=== PATIENT | female | born 1970 | race Caucasian/White ===

== ENCOUNTER 2017-09-26 17:14 | Emergency (ER) | payer BC, OTHER ==
[~2017-09-26] VITALS: Ht 162.6 cm; Wt 66.0 kg
[~2017-09-26 17:14] MED LIST: CELE40TA PO; FAMO1TAB37 PO; METR-1 PO; REGL5TAB PO
[2017-09-26] MEDS ORDERED: IOHEXOL 350 MG/ML 10 ML VIAL (for RAD DIAG) IVCONTRAST ONE (17:15)
[2017-09-26 17:30] VITALS: BP 182/100; PULSE 71; RESP 16; TEMP 98.3; O2SAT 98
[2017-09-26] MEDS ORDERED: ZOFR4TAB3 SL (17:36)
[2017-09-26 17:49] LABS: AUTOMATED NEUTROPHIL # 8.6 TH/MM3 (1.8-7.7); BASOPHIL # 0.2 TH/MM3 (0-0.2); BASOPHIL % 1.6 % (0.0-2.0); EOSINOPHIL % 0.1 % (0.0-4.0); HEMATOCRIT 47.4 % (35.0-46.0); HEMOGLOBIN 16.4 GM/DL (11.6-15.3); LYMPH % 15.9 % (9.0-44.0); LYMPHOCYTE # 1.7 TH/MM3 (1.0-4.8); MEAN CELL VOLUME 92.6 FL (80.0-100.0); MEAN CORPUSCULAR HGB CONC 34.5 % (32.0-36.0); MEAN PLATELET VOLUME 10.5 FL (7.0-11.0); MONO % 1.6 % (0.0-8.0); MONOCYTE # 0.2 TH/MM3 (0-0.9); NEUT % 80.8 % (16.0-70.0); PLATELET COUNT 167 TH/MM3 (150-450); RED BLOOD COUNT 5.11 MIL/MM3 (4.00-5.30); RED CELL DISTRIBUTION WIDTH 13.7 % (11.6-17.2); WHITE BLOOD COUNT 10.7 TH/MM3 (4.0-11.0)
[2017-09-26 17:53] LABS: CHLORIDE 104 MEQ/L (98-107); SODIUM (NA) 137 MEQ/L (136-145)
[2017-09-26 17:56] LABS: CALCIUM 9.2 MG/DL (8.5-10.1)
[2017-09-26 17:57] LABS: ALBUMIN 4.4 GM/DL (3.4-5.0); BICARBONATE 21.6 MEQ/L (21.0-32.0); BLOOD UREA NITROGEN 9 MG/DL (7-18); GLUCOSE,RANDOM 140 MG/DL (74-106)
[2017-09-26 18:00] LABS: ALT (GPT) 13 U/L (10-53); AST (GOT) 11 U/L (15-37); GLOMERULAR FILTRATION RATE 76 ML/MIN (>89)
[2017-09-26] MEDS ORDERED: KETOROLAC TROMETHAMINE 30 MG/ML (IVP) VIAL IV PUSH ONE (18:00)
[2017-09-26 18:01] LABS: TOTAL BILIRUBIN ADULT 0.5 MG/DL (0.2-1.0); TOTAL PROTEIN 8.4 GM/DL (6.4-8.2)
[2017-09-26 18:02] LABS: PROTHROMBIN TIME - PATIENT 10.6 SEC (9.8-11.6)
[2017-09-26 18:03] LABS: ALKALINE PHOSPHATASE 80 U/L (45-117); D-DIMER 0.61 MG/L FEU (0.00-0.50)
[2017-09-26 18:05] LABS: TROPONIN I LESS THAN 0.02 NG/ML (0.02-0.05)
--- NOTE | 2017-09-26 18:22 | RADRPT ---
EXAM DATE/TIME: 09/26/2017 18:03 [facility] COMPARISON: CHEST SINGLE AP, December 14, 2012, 10:53. INDICATIONS : Substernal chest pain radiating down left arm. MEDICAL HISTORY : None. SURGICAL HISTORY : None. ENCOUNTER: Initial ACUITY: 1 day PAIN SCORE: 5/10 LOCATION: chest substernal FINDINGS: No infiltrate, effusion or pneumothorax. Heart size stable, within normal limits. There are minimally displaced fractures laterally of the right fifth and sixth ribs. These are nonacu te but new since 2012. They appear substantially healed. CONCLUSION: No evidence of acute cardiopulmonary disease. Nonacute right rib fractures. Fercho Jaimes MD on September 26, 2017 at 18:18 Board Certified Radiologist. This report was verified electronically.
--- NOTE | 2017-09-26 18:51 | PD ---
HPI Chief Complaint: Chest Pain Time Seen by Provider: 17:22 Travel History International Travel<30 days: No Contact w/Intl Traveler<30days: No Traveled to known affect area: No History of Present Illness HPI This is a 47-year-old female presents to the ER complaining of chest pain for the last 2 hours prior to arrival in the ER. Pain is 9 out of 10 constant, located substernally, no radiation, started 2 hours ago and still there, sharp, nothing makes it better or worse. Patient is going through family stress and reports being distressed. She denies any cough or shortness of breath no fever or chills or night sweats, no abdominal pain or nausea or vomiting. PFSH Past Medical History Hx Anticoagulant Therapy: No Arthritis: No Asthma: No Autoimmune Disease: No Blood Disorders: No Anxiety: Yes Depression: Yes Heart Rhythm Problems: No Cancer: No Cardiac Catheterization: Yes (2012) Cardiovascular Problems: Yes High Cholesterol: No Chemotherapy: No Chest Pain: No Congestive Heart Failure: No COPD: No Cerebrovascular Accident: No Diabetes: No Diminished Hearing: No Endocrine: No Gastrointestinal Disorders: Yes (ULCER, PANCREATITIS, SPHINTER OF ODDI DISFUNCTION) GERD: Yes Glaucoma: No Genitourinary: No Headaches: No Hepatitis: No Hiatal Hernia: No Heparin Induced Thrombocytopen: No Hypertension: No Immune Disorder: No Kidney Stones: No Medical other: No Musculoskeletal: Yes Neurologic: No Psychiatric: Yes Respiratory: No Immunizations Current: No Migraines: No Myocardial Infarction: Yes (PER PT. AT END OF JULY 2012) Pancreatitis: Yes Radiation Therapy: No Renal Failure: No Seizures: No Sickle Cell Disease: No Sleep Apnea: No Thyroid Disease: No Ulcer: No ?: Not Menopausal: Yes Past Surgical History Abdominal Surgery: Yes (GALLBLADDER, SPHINCTERPLASTY AND MULTIPLE STENTS PLACED IN COMMON BILE DUCT) AICD: No Arteriovenous Shunt: No Body Medical Devices: TITANIUM PLATE AND SCREWS IN NECK Cardiac Surgery: Yes (CATHETERIZATION ) Cholecystectomy: Yes (1995) Ear Surgery: No Endocrine Surgery: No Eye Surgery: No Genitourinary Surgery: No Gynecologic Surgery: Yes (OVARIAN CYSTECTOMY) Insulin Pump: No Joint Replacement: No Neurologic Surgery: Yes (CERVICAL FUSION ) Oral Surgery: Yes (DENTURES, WISDOM TEETH) Pacemaker: No Thoracic Surgery: No Other Surgery: Yes (ERCP 01/20,08/24, 12/30/06,03/24 WITH STENT IN, REMOVAL OF STENT 08/2007) Social History Alcohol Use: No (denies) Tobacco Use: No Substance Use: No Allergies-Medications (Allergen,Severity, Reaction): Coded Allergies: codeine (Unverified Adverse Reaction, Severe, Nausea/Vomiting, 09/26/17) Reported Meds & Prescriptions Reported Meds & Active Scripts Active Reglan (Metoclopramide HCl) 5 Mg Tab 5 Mg PO Q6HR PRN Reported Zofran Odt (Ondansetron Odt) 4 Mg Tab 4 Mg SL Q12HR PRN Celexa (Citalopram Hydrobromide) 40 Mg Tab 40 Mg PO DAILY Review of Systems Except as stated in HPI: all other systems reviewed are Neg Physical Exam Narrative GENERAL: Alert oriented 3 no acute distress. SKIN: Focused skin assessment warm/dry. HEAD: Atraumatic. Normocephalic. EYES: Pupils equal and round. No scleral icterus. No injection or drainage. ENT: No nasal bleeding or discharge. Mucous membranes pink and moist. NECK: Trachea midline. No JVD. CARDIOVASCULAR: Regular rate and rhythm. No murmur appreciated. RESPIRATORY: No accessory muscle use. Clear to auscultation. Breath sounds equal bilaterally. GASTROINTESTINAL: Abdomen soft, non-tender, nondistended. Hepatic and splenic margins not palpable. MUSCULOSKELETAL: No obvious deformities. No clubbing. No cyanosis. No edema. NEUROLOGICAL: Awake and alert. No obvious cranial nerve deficits. Motor grossly within normal limits. Normal speech. PSYCHIATRIC: Appropriate mood and affect; insight and judgment normal. Data Data Last Documented VS Vital Signs Date Time Temp Pulse Resp B/P (MAP) Pulse Ox O2 Delivery O2 Flow Rate FiO2 09/26/17 17:30 98.3 71 16 182/100 (127) 98 09/26/17 17:28 Room Air Orders Orders Troponin I (09/26/17 17:29) Urinalysis - C+S If Indicated (09/26/17 17:29) Prothrombin Time / Inr (Pt) (09/26/17 17:29) Act Partial Throm Time (Ptt) (09/26/17 17:29) D-Dimer (09/26/17 17:29) Comprehensive Metabolic Panel (09/26/17 17:29) Complete Blood Count With Diff (09/26/17 17:29) B-Type Natriuretic Peptide (09/26/17 17:29) Chest, Single Ap (09/26/17 ) Ketorolac Inj (Toradol Inj) (09/26/17 18:00) Electrocardiogram (09/26/17 17:22) Ct Pulmonary Angiogram (09/26/17 ) Aspirin (Aspirin) (09/26/17 19:00) Labs Laboratory Tests Test 09/26/17 17:34 White Blood Count 10.7 TH/MM3 Red Blood Count 5.11 MIL/MM3 Hemoglobin 16.4 GM/DL Hematocrit 47.4 % Mean Corpuscular Volume 92.6 FL Mean Corpuscular Hemoglobin 32.0 PG Mean Corpuscular Hemoglobin Concent 34.5 % Red Cell Distribution Width 13.7 % Platelet Count 167 TH/MM3 Mean Platelet Volume 10.5 FL Neutrophils (%) (Auto) 80.8 % Lymphocytes (%) (Auto) 15.9 % Monocytes (%) (Auto) 1.6 % Eosinophils (%) (Auto) 0.1 % Basophils (%) (Auto) 1.6 % Neutrophils # (Auto) 8.6 TH/MM3 Lymphocytes # (Auto) 1.7 TH/MM3 Monocytes # (Auto) 0.2 TH/MM3 Eosinophils # (Auto) 0.0 TH/MM3 Basophils # (Auto) 0.2 TH/MM3 CBC Comment AUTO DIFF Differential Comment AUTO DIFF CONFIRMED Platelet Estimate NORMAL Platelet Morphology Comment CLUMPED Prothrombin Time 10.6 SEC Prothromb Time International Ratio 1.0 RATIO Activated Partial Thromboplast Time 19.5 SEC D-Dimer Quantitative (PE/DVT) 0.61 MG/L FEU Blood Urea Nitrogen 9 MG/DL Creatinine 0.80 MG/DL Random Glucose 140 MG/DL Total Protein 8.4 GM/DL Albumin 4.4 GM/DL Calcium Level 9.2 MG/DL Alkaline Phosphatase 80 U/L Aspartate Amino Transf (AST/SGOT) 11 U/L Alanine Aminotransferase (ALT/SGPT) 13 U/L Total Bilirubin 0.5 MG/DL Sodium Level 137 MEQ/L Potassium Level 3.7 MEQ/L Chloride Level 104 MEQ/L Carbon Dioxide Level 21.6 MEQ/L Anion Gap 11 MEQ/L Estimat Glomerular Filtration Rate 76 ML/MIN Troponin I LESS THAN 0.02 NG/ML B-Type Natriuretic Peptide 16 PG/ML [facility] Medical Decision Making Medical Screen Exam Complete: Yes Emergency Medical Condition: Yes Differential Diagnosis Pulmonary embolism, acute coronary syndrome, costochondritis, stress. Narrative Course This is a 47-year-old female presented the ER complaining of chest pain for last 2 hours. EKG shows Q waves in a I, aVL, V5 and V6. Labs are within normal limits except elevated d-dimer. Patient will be taken to CTA chest to rule out PE. Pending CAT scan and pending disposition will be signed out to next shift. Diagnosis Primary Impression: Chest pain Qualified Codes: R07.9 - Chest pain, unspecified Patel Callahan MD Sep 26, 2017 18:51
--- NOTE | 2017-09-26 19:11 | PD ---
Physical Exam Time Seen by Provider: 19:[address] Kimball left this patient with me to check the results of the CT angiogram for pulmonary embolus and make a disposition, likely discharge. Data Data Last Documented VS Vital Signs Date Time Temp Pulse Resp B/P (MAP) Pulse Ox O2 Delivery O2 Flow Rate FiO2 09/26/17 19:26 65 18 198/80 (119) 100 Nasal Cannula 2.00 09/26/17 17:30 98.3 Orders Orders Troponin I (09/26/17 17:29) Urinalysis - C+S If Indicated (09/26/17 17:29) Prothrombin Time / Inr (Pt) (09/26/17 17:29) Act Partial Throm Time (Ptt) (09/26/17 17:29) D-Dimer (09/26/17 17:29) Comprehensive Metabolic Panel (09/26/17 17:29) Complete Blood Count With Diff (09/26/17 17:29) B-Type Natriuretic Peptide (09/26/17 17:29) Chest, Single Ap (09/26/17 ) Ketorolac Inj (Toradol Inj) (09/26/17 18:00) Electrocardiogram (09/26/17 17:22) Ct Pulmonary Angiogram (09/26/17 ) Aspirin (Aspirin) (09/26/17 19:15) Ondansetron Inj (Zofran Inj) (09/26/17 19:15) Iohexol 350 Inj (Omnipaque 350 Inj) (09/26/17 17:15) Labs Laboratory Tests Test 09/26/17 17:34 White Blood Count 10.7 TH/MM3 Red Blood Count 5.11 MIL/MM3 Hemoglobin 16.4 GM/DL Hematocrit 47.4 % Mean Corpuscular Volume 92.6 FL Mean Corpuscular Hemoglobin 32.0 PG Mean Corpuscular Hemoglobin Concent 34.5 % Red Cell Distribution Width 13.7 % Platelet Count 167 TH/MM3 Mean Platelet Volume 10.5 FL Neutrophils (%) (Auto) 80.8 % Lymphocytes (%) (Auto) 15.9 % Monocytes (%) (Auto) 1.6 % Eosinophils (%) (Auto) 0.1 % Basophils (%) (Auto) 1.6 % Neutrophils # (Auto) 8.6 TH/MM3 Lymphocytes # (Auto) 1.7 TH/MM3 Monocytes # (Auto) 0.2 TH/MM3 Eosinophils # (Auto) 0.0 TH/MM3 Basophils # (Auto) 0.2 TH/MM3 CBC Comment AUTO DIFF Differential Comment AUTO DIFF CONFIRMED Platelet Estimate NORMAL Platelet Morphology Comment CLUMPED Prothrombin Time 10.6 SEC Prothromb Time International Ratio 1.0 RATIO Activated Partial Thromboplast Time 19.5 SEC D-Dimer Quantitative (PE/DVT) 0.61 MG/L FEU Blood Urea Nitrogen 9 MG/DL Creatinine 0.80 MG/DL Random Glucose 140 MG/DL Total Protein 8.4 GM/DL Albumin 4.4 GM/DL Calcium Level 9.2 MG/DL Alkaline Phosphatase 80 U/L Aspartate Amino Transf (AST/SGOT) 11 U/L Alanine Aminotransferase (ALT/SGPT) 13 U/L Total Bilirubin 0.5 MG/DL Sodium Level 137 MEQ/L Potassium Level 3.7 MEQ/L Chloride Level 104 MEQ/L Carbon Dioxide Level 21.6 MEQ/L Anion Gap 11 MEQ/L Estimat Glomerular Filtration Rate 76 ML/MIN Troponin I LESS THAN 0.02 NG/ML B-Type Natriuretic Peptide 16 PG/ML [facility] Medical Record Reviewed: Yes Supervised Visit with ABIMBOLA: No Interpretation(s) The CTA, pulmonary angiogram to rule out pulmonary embolus shows no pulmonary embolus or other acute cardiopulmonary disease. The coagulation profile is normal except for an APTT of 19.5. The d-dimer was slightly elevated at 0.61. The BNP is normal and the CBC is normal except for hemoglobin of 16.4 and hematocrit of 47.4 with 81% neutrophils. The complete metabolic profile shows a GFR of 76, glucose 140, total protein 8.4 but is otherwise unremarkable. The troponin I is normal. The chest x-ray shows no evidence of acute cardiopulmonary disease and there are nonacute right rib fractures. EKG shows sinus bradycardia with a rate of [address] elevation or depression. Diagnosis Primary Impression: Atypical chest pain Additional Instruction: As we discussed, and as you intend to do, please follow-up with your primary care physician tomorrow as scheduled. Bring the laboratory/imaging results with you so that he can review them. Med/Other Pt SpecificInfo: No Change to Meds Disposition: 01 DISCHARGE HOME Condition: Stable Bernardino Cain MD Sep 26, 2017 19:11
[2017-09-26] MEDS ORDERED: ONDANSETRON HCL 4 MG/2 ML VIAL IV ONE (19:15)
[2017-09-26] MEDS ORDERED: ASPIRIN 325 MG TAB PO ONE (19:15)
[2017-09-26 19:26] VITALS: BP_SYST 198; BP_DIAS 80; BP_DIAS 95; PULSE 65; RESP 18; O2SAT 100
--- NOTE | 2017-09-26 19:27 | RADRPT ---
EXAM DATE/TIME: 09/26/2017 19:05 [facility] COMPARISON: CHEST SINGLE AP, September 26, 2017, 18:03. CHEST SINGLE AP, December 14, 2012, 10:53. INDICATIONS : Chest pain, shortness of breath IV CONTRAST: 75 cc Omnipaque 350 (iohexol) IV RADIATION DOSE: 8.06 CTDIvol (mGy) MEDICAL HISTORY : None SURGICAL HISTORY : None. ENCOUNTER: Initial ACUITY: 1 day PAIN SCALE: 4/10 LOCATION: chest TECHNIQUE: Volumetric scanning of the chest was performed using a pulmonary embolism protocol MIP images were re constructed. Using automated exposure control and adjustment of the mA and/or kV according to patien t size, radiation dose was kept as low as reasonably achievable to obtain optimal diagnostic quality images. DICOM format image data is available electronically for review and comparison. Follow-up recommendations for detected pulmonary nodules are based at a minimum on nodule size and pa tient risk factors according to Fleischner Society Guidelines. FINDINGS: PULMONARY ARTERIES: No filling defects are seen in the pulmonary arteries through the segmental level. LUNGS: There is no consolidation or pneumothorax . No concerning pulmonary nodule is visualized. PLEURAE: There is no pleural thickening or pleural effusion. MEDIASTINUM: There is good visualization of the great vessels of the middle mediastinum. No evidence of mediastin al or hilar adenopathy/mass. MUSCULOSKELETAL: No acute bony abnormality demonstrated. There are old fractures of the right fifth and sixth ribs. MISCELLANEOUS: The visualized upper abdominal organs demonstrate no acute abnormality. CONCLUSION: No pulmonary embolus or other acute cardiopulmonary disease. Fercho Jaimes MD on September 26, 2017 at 19:24 Board Certified Radiologist. This report was verified electronically.
[2017-09-26 20:08] VITALS: BP 178/82; PULSE 68; RESP 16; O2SAT 98
[2017-09-26] MEDS ORDERED: ZOFR8TAB PO (20:22)
[2017-09-27] MEDS ORDERED: PRIL20TA2 (06:30)
--- NOTE | 2017-09-27 20:10 | EKG ---
Date Performed: 09/26/2017 Time Performed: 17:22:02 PTAGE: 47 years EKG: SINUS BRADYCARDIA POSSIBLE RIGHT VENTRICULAR CONDUCTION DELAY POSSIBLE LATERAL MYOCARDIAL I NFARCTION BORDERLINE ECG Since the PREVIOUS TRACING , no significant change noted DOCTOR: Renetta Chow Interpretating Date/Time 09/27/2017 20:09:29
== END 2017-09-26 20:27 | disposition home or self-care (01) ==
LOC: PHED 17:14
DX: R07.89 Other chest pain (principal); R94.31 Abnormal electrocardiogram [ECG] [EKG]; R00.1 Bradycardia, unspecified; I25.2 Old myocardial infarction
CPT/HCPCS: 71045; 71275; 80053; 83880; 84484; 85025; 85379; 85610; 85730; 93005; 96374; 96375; 99285; J1885; J2405; Q9967

== ENCOUNTER 2017-09-27 06:16 | Observation (INO) | payer OTHER ==
[2017-09-27] VITALS (7 sets, daily range): BP systolic 182–220; BP diastolic 69–97; PULSE 63–81; RESP 14–20; TEMP 98.2–100.5; O2SAT 96–99
[~2017-09-27] VITALS: Ht 162.6 cm; Wt 66.5 kg
[~2017-09-27 06:16] MED LIST changes: -FAMO1TAB37 PO; -METR-1 PO; +ZOFR4TAB3 SL; +ZOFR8TAB PO
[2017-09-27] MEDS ORDERED: PRIL20TA2 (06:30)
--- NOTE | 2017-09-27 06:52 | PD ---
HPI Chief Complaint: Seizure Time Seen by Provider: 06:46 Travel History International Travel<30 days: No Contact w/Intl Traveler<30days: No Traveled to known affect area: No History of Present Illness HPI The patient is a 47-year-old female that was seen yesterday afternoon by myself for chest pain. She states she went home and started vomiting and vomited all night. She now complains of midline epigastric pain. She states she also had some diarrhea. She does feel dehydrated. She does have a history of abdominal pain and multiple visits for abdominal pain in the past. She had Zofran at home but she states she could not keep it down therefore it did not work. She denies any fever or blood in the vomitus or stool. The patient is not sure whether she passed out or had a seizure last night. She did not hurt herself with any fall. She did not bite her tongue. PFSH Past Medical History Hx Anticoagulant Therapy: No Arthritis: No Asthma: No Autoimmune Disease: No Blood Disorders: No Anxiety: Yes Depression: Yes Heart Rhythm Problems: No Cancer: No Cardiac Catheterization: Yes (2012) Cardiovascular Problems: Yes High Cholesterol: No Chemotherapy: No Chest Pain: No Congestive Heart Failure: No COPD: No Cerebrovascular Accident: No Diabetes: No Diminished Hearing: No Endocrine: No Gastrointestinal Disorders: Yes (ULCER, PANCREATITIS, SPHINTER OF ODDI DISFUNCTION) GERD: Yes Glaucoma: No Genitourinary: No Headaches: No Hepatitis: No Hiatal Hernia: No Heparin Induced Thrombocytopen: No Hypertension: No Immune Disorder: No Kidney Stones: No Musculoskeletal: Yes Neurologic: No Psychiatric: Yes Respiratory: No Immunizations Current: No Migraines: No Myocardial Infarction: Yes (PER PT. AT END OF JULY 2012) Pancreatitis: Yes Radiation Therapy: No Renal Failure: No Seizures: No Sickle Cell Disease: No Sleep Apnea: No Thyroid Disease: No Ulcer: No Tetanus Vaccination: < 5 Years Influenza Vaccination: No ?: Not Menopausal: Yes Past Surgical History Abdominal Surgery: Yes (GALLBLADDER, SPHINCTERPLASTY AND MULTIPLE STENTS PLACED IN COMMON BILE DUCT) AICD: No Arteriovenous Shunt: No Body Medical Devices: TITANIUM PLATE AND SCREWS IN NECK Cardiac Surgery: Yes (CATHETERIZATION ) Cholecystectomy: Yes (1995) Ear Surgery: No Endocrine Surgery: No Eye Surgery: No Genitourinary Surgery: No Gynecologic Surgery: Yes (OVARIAN CYSTECTOMY) Insulin Pump: No Joint Replacement: No Neurologic Surgery: Yes (CERVICAL FUSION ) Oral Surgery: Yes (DENTURES, WISDOM TEETH) Pacemaker: No Thoracic Surgery: No Other Surgery: Yes (ERCP 01/20,08/24, 12/30/06,03/24 WITH STENT IN, REMOVAL OF STENT 08/2007) Social History Alcohol Use: No (denies) Tobacco Use: Yes (1/2 PPD) Substance Use: No Allergies-Medications (Allergen,Severity, Reaction): Coded Allergies: codeine (Unverified Adverse Reaction, Severe, Nausea/Vomiting, 09/27/17) Reported Meds & Prescriptions Reported Meds & Active Scripts Active Reported Prilosec (Omeprazole Magnesium) 20 Mg Tab Zofran Odt (Ondansetron Odt) 4 Mg Tab 4 Mg SL Q12HR PRN Celexa (Citalopram Hydrobromide) 40 Mg Tab 40 Mg PO DAILY Review of Systems Except as stated in HPI: all other systems reviewed are Neg Physical Exam Narrative GENERAL: The patient is alert, oriented 3, moderately dehydrated appearing and in moderate apparent distress with her midline epigastric discomfort. Her vital signs show blood pressure 183/85 but are otherwise normal. SKIN: Focused skin assessment warm/dry. No skin rash is seen. HEAD: Atraumatic. Normocephalic. EYES: Pupils equal and round. No scleral icterus. No injection or drainage. ENT: No nasal bleeding or discharge. Mucous membranes pink but somewhat dry. No bite ho are noted on the tongue. NECK: Trachea midline. No JVD. There is no meningismus present. CARDIOVASCULAR: Regular rate and rhythm. No murmur appreciated. RESPIRATORY: No accessory muscle use. Clear to auscultation. Breath sounds equal bilaterally. GASTROINTESTINAL: Abdomen soft, with tenderness in the midline epigastrium to direct palpation, nondistended. Hepatic and splenic margins not palpable. No guarding or rebound is present. MUSCULOSKELETAL: No obvious deformities. No clubbing. No cyanosis. No edema. NEUROLOGICAL: Awake and alert. No obvious cranial nerve deficits. Motor grossly within normal limits. Normal speech. PSYCHIATRIC: Appropriate mood and affect; insight and judgment normal. Data Data Last Documented VS Vital Signs Date Time Temp Pulse Resp B/P (MAP) Pulse Ox O2 Delivery O2 Flow Rate FiO2 09/27/17 06:22 98.4 65 14 183/85 (117) 98 Orders Orders Beta Hcg (Quant/Titer) (09/27/17 06:52) Complete Blood Count With Diff (09/27/17 06:52) Comprehensive Metabolic Panel (09/27/17 06:52) Lipase (09/27/17 06:52) Urinalysis - C+S If Indicated (09/27/17 06:52) Iv Access Insert/Monitor (09/27/17 06:52) Ecg Monitoring (09/27/17 06:52) Oximetry (09/27/17 06:52) Ondansetron Inj (Zofran Inj) (09/27/17 07:00) Sodium Chloride 0.9% Flush (Ns Flush) (09/27/17 07:00) Sodium Chlor 0.9% 1000 Ml Inj (Ns 1000 M (09/27/17 07:00) Labs Laboratory Tests Test 09/27/17 07:00 MDM Medical Decision Making Medical Screen Exam Complete: Yes Emergency Medical Condition: Yes Medical Record Reviewed: Yes Differential Diagnosis Gastritis, gastroenteritis, pancreatitis, dehydration, electrolyte disorder, renal insufficiency Narrative Course It is now 0700 and the patient is transferred to Dr. Kimball. Bernardino Cain MD Sep 27, 2017 06:52
[2017-09-27] MEDS ORDERED: ONDANSETRON HCL 4 MG/2 ML VIAL IVP ONE (07:00)
[2017-09-27] MEDS ORDERED: SODIUM CHLORIDE 0.9% FLUSH 10 ML FLUSH IV FLUSH PRN ×2 (07:00→11:00)
[2017-09-27] MEDS: SODIUM CHLOR 0.9% 1000 ML INJ 1,000 ML IV SCH ×4 (07:13→19:44)
[2017-09-27 07:15] LABS: AUTOMATED NEUTROPHIL # 15.2 TH/MM3 (1.8-7.7); BASOPHIL # 0.3 TH/MM3 (0-0.2); BASOPHIL % 1.5 % (0.0-2.0); HEMATOCRIT 44.8 % (35.0-46.0); HEMOGLOBIN 14.8 GM/DL (11.6-15.3); LYMPH % 8.8 % (9.0-44.0); LYMPHOCYTE # 1.5 TH/MM3 (1.0-4.8); MEAN CELL VOLUME 92.1 FL (80.0-100.0); MEAN CORPUSCULAR HEMOGLOBIN 30.4 PG (27.0-34.0); MEAN PLATELET VOLUME 12.1 FL (7.0-11.0); MONO % 2.4 % (0.0-8.0); MONOCYTE # 0.4 TH/MM3 (0-0.9); NEUT % 87.3 % (16.0-70.0); PLATELET COUNT 192 TH/MM3 (150-450); RED BLOOD COUNT 4.86 MIL/MM3 (4.00-5.30); RED CELL DISTRIBUTION WIDTH 13.2 % (11.6-17.2); WHITE BLOOD COUNT 17.4 TH/MM3 (4.0-11.0)
[2017-09-27 07:34] LABS: CHLORIDE 100 MEQ/L (98-107); SODIUM (NA) 135 MEQ/L (136-145)
[2017-09-27 07:38] LABS: ALBUMIN 4.3 GM/DL (3.4-5.0); BLOOD UREA NITROGEN 11 MG/DL (7-18); CALCIUM 8.9 MG/DL (8.5-10.1); GLUCOSE,RANDOM 117 MG/DL (74-106)
[2017-09-27 07:41] LABS: ALT (GPT) 12 U/L (10-53); AST (GOT) 6 U/L (15-37); CREATININE 0.79 MG/DL (0.50-1.00); GLOMERULAR FILTRATION RATE 77 ML/MIN (>89)
[2017-09-27 07:43] LABS: TOTAL BILIRUBIN ADULT 0.5 MG/DL (0.2-1.0); TOTAL PROTEIN 8.3 GM/DL (6.4-8.2)
[2017-09-27 07:44] LABS: ALKALINE PHOSPHATASE 76 U/L (45-117)
[2017-09-27 08:19] LABS: BILIRUBIN, URINE NEG (NEG); BLOOD, URINE SMALL (NEG); GLUCOSE,URINE NEG (NEG); KETONE, URINE 40 mg/dL (NEG); NITRITE,URINE NEG (NEG); PH, URINE 6.5 (5.0-8.5); URINE COLOR YELLOW (YELLW/STRAW); URINE LEUKOCYTE ESTERASE NEG (NEG)
[2017-09-27 08:27] LABS: BACTERIA, URINE MOD /hpf; MUCUS URINE OCC /lpf (OCC); SQUAMOUS EPITHELIAL CELL URINE 0-5 /hpf (0-5); WBC, URINE 0-2 /hpf (0-5)
[2017-09-27] MEDS ORDERED: ONDANSETRON HCL 4 MG/2 ML VIAL IV PUSH ONE (10:45)
[2017-09-27] MEDS ORDERED: LORazepam 2 MG/ML VIAL IV PUSH ONE (10:45)
[2017-09-27] MEDS ORDERED: IBUPROFEN 800 MG TAB PO ONE (10:45)
--- NOTE | 2017-09-27 10:57 | PD ---
Physical Exam Narrative This is a 47-year-old female who presented to the ER yesterday for chest pain that had extensive workup that was negative. She returned to the ER again last night complaining of nausea and vomiting. Patient received 3 doses of Zofran and 1 dose of Ativan and 2 L of IV fluids she is responding to the treatment but continues to have nausea and vomiting and headache in the ER. Patient clinically is dehydrated and will be admitted for intractable nausea and dehydration. Spoke with 1 of the family members and states that patient is going through stress at home and is not eating well has been losing weight. When I asked the patient she denies any stress, denies any suicidal or homicidal ideation. Data Data Last Documented VS Vital Signs Date Time Temp Pulse Resp B/P (MAP) Pulse Ox O2 Delivery O2 Flow Rate FiO2 09/27/17 08:02 97 Room Air 09/27/17 06:22 98.4 65 14 Orders Orders Beta Hcg (Quant/Titer) (09/27/17 06:52) Complete Blood Count With Diff (09/27/17 06:52) Comprehensive Metabolic Panel (09/27/17 06:52) Lipase (09/27/17 06:52) Urinalysis - C+S If Indicated (09/27/17 06:52) Iv Access Insert/Monitor (09/27/17 06:52) Ecg Monitoring (09/27/17 06:52) Oximetry (09/27/17 06:52) Ondansetron Inj (Zofran Inj) (09/27/17 07:00) Sodium Chloride 0.9% Flush (Ns Flush) (09/27/17 07:00) Sodium Chlor 0.9% 1000 Ml Inj (Ns 1000 M (09/27/17 07:00) Urine Culture (09/27/17 08:12) Ondansetron Inj (Zofran Inj) (09/27/17 10:45) Ibuprofen (Motrin) (09/27/17 10:45) Lorazepam Inj (Ativan Inj) (09/27/17 10:45) Labs Laboratory Tests Test 09/27/17 07:00 09/27/17 08:12 White Blood Count 17.4 TH/MM3 Red Blood Count 4.86 MIL/MM3 Hemoglobin 14.8 GM/DL Hematocrit 44.8 % Mean Corpuscular Volume 92.1 FL Mean Corpuscular Hemoglobin 30.4 PG Mean Corpuscular Hemoglobin Concent 33.0 % Red Cell Distribution Width 13.2 % Platelet Count 192 TH/MM3 Mean Platelet Volume 12.1 FL Neutrophils (%) (Auto) 87.3 % Lymphocytes (%) (Auto) 8.8 % Monocytes (%) (Auto) 2.4 % Eosinophils (%) (Auto) 0.0 % Basophils (%) (Auto) 1.5 % Neutrophils # (Auto) 15.2 TH/MM3 Lymphocytes # (Auto) 1.5 TH/MM3 Monocytes # (Auto) 0.4 TH/MM3 Eosinophils # (Auto) 0.0 TH/MM3 Basophils # (Auto) 0.3 TH/MM3 CBC Comment DIFF FINAL Differential Comment Blood Urea Nitrogen 11 MG/DL Creatinine 0.79 MG/DL Random Glucose 117 MG/DL Total Protein 8.3 GM/DL Albumin 4.3 GM/DL Calcium Level 8.9 MG/DL Alkaline Phosphatase 76 U/L Aspartate Amino Transf (AST/SGOT) 6 U/L Alanine Aminotransferase (ALT/SGPT) 12 U/L Total Bilirubin 0.5 MG/DL Sodium Level 135 MEQ/L Potassium Level 3.4 MEQ/L Chloride Level 100 MEQ/L Carbon Dioxide Level 25.0 MEQ/L Anion Gap 10 MEQ/L Estimat Glomerular Filtration Rate 77 ML/MIN Lipase 90 U/L Human Chorionic Gonadotropin, Quant 2 MIU/ML Urine Collection Type CLEAN CATCH Urine Color YELLOW Urine Turbidity CLEAR Urine pH 6.5 Urine Specific [place] 1.010 Urine Protein NEG mg/dL Urine Glucose (UA) NEG mg/dL Urine Ketones 40 mg/dL Urine Occult Blood SMALL Urine Nitrite NEG Urine Bilirubin NEG Urine Urobilinogen 0.2 MG/DL Urine Leukocyte Esterase NEG Urine WBC 0-2 /hpf Urine Squamous Epithelial Cells 0-5 /hpf Urine Bacteria MOD /hpf Urine Mucus OCC /lpf Microscopic Urinalysis Comment CULTURE INDICATED MDM Supervised Visit with ABIMBOLA: Yes Diagnosis Primary Impression: Intractable nausea and vomiting Qualified Codes: G43.A1 - Cyclical vomiting, intractable Additional Impression: Dehydration Disposition: 01 DISCHARGE HOME Condition: Stable Patel Callahan MD Sep 27, 2017 10:57
[2017-09-27] MEDS ORDERED: MAGNESIUM HYDROXIDE SUSP 30 ML CUP PO PRN (11:00)
[2017-09-27] MEDS ORDERED: POTASSIUM CHLORIDE 20 MEQ CONTROLLED RELEASE TAB PO ONE (11:00)
[2017-09-27] MEDS ORDERED: NALOXONE HCL 0.4 MG/ML AMP IV PUSH PRN (11:00)
[2017-09-27] MEDS: ENOXAPARIN SODIUM 40 MG/0.4 ML SYRINGE SQ SCH (12:24)
[2017-09-27] MEDS: ONDANSETRON HCL 4 MG/2 ML VIAL IVP PRN ×2 (14:57→22:03)
[2017-09-27] MEDS ORDERED: IBUPROFEN 600 MG TAB PO ONE (17:30)
[2017-09-27] MEDS ORDERED: traMADol HCL 50 MG TAB PO PRN (18:00)
--- NOTE | 2017-09-27 19:03 | HHI.HP ---
[facility] El Jackson MD Admission Diagnosis HYPOKALEMIA, INTERACTABLE NAUSEA AND VOMITING, DEHYDRATION Diagnoses: Travel History International Travel<30 Days: No Contact w/Intl Traveler <30 Da: No Traveled to Known Affected Are: No History of Present Illness Mrs. Tyler is a 47-year-old female. She came into the hospital after having a syncopal episode at home. This was preceded by nausea and vomiting for about 2 days. She has no prior history of seizure or syncope. No fevers. With treatment here she is feeling better and able to tolerate some by mouth intake at this point. Diarrhea had been present earlier but is no longer present. Mild disruptions of sodium and potassium are present but not overt. White blood cell count is elevated, urinary tract infection is present. No other complaints at this time. Review of Systems Constitutional: COMPLAINS OF: Change in appetite, DENIES: Fatigue, Fever, Chills Eyes: DENIES: Blurred vision, Diplopia, Eye inflammation Ears, nose, mouth, throat: DENIES: Hearing loss, Vertigo, Nasal discharge Respiratory: DENIES: Cough, Snoring, Hemoptysis Cardiovascular: DENIES: Chest pain, Palpitations, Syncope, Dyspnea on Exertion Gastrointestinal: COMPLAINS OF: Diarrhea, Nausea, Vomiting, DENIES: Abdominal pain, Black stools, Bloody stools Musculoskeletal: DENIES: Joint pain, Muscle aches, Stiffness, Joint Swelling Integumentary: DENIES: Abnormal pigmentation, Pruritus, Rash, Nail changes Hematologic/lymphatic: DENIES: Bruising, Lymphadenopathy Immunologic/allergic: DENIES: Eczema, Urticaria Neurologic: DENIES: Abnormal gait, Headache, Paresthesias Psychiatric: DENIES: Anxiety, Confusion, Hallucinations Past Family Social History Past Medical History Depression Gen. anxiety disorder Cardia vascular disease Gastroesophageal reflux disease History of gastric ulcer History of pancreatitis History of sphincter of the dysfunction Old myocardial infarction Past Surgical History Cardiac catheterization Titanium plate and screws and neck History of cholecystectomy History of ovarian cystectomy Sphincter plasty Common bile duct stents Cervical fusion ERCP Reported Medications Reported Meds & Active Scripts Active Reported Prilosec (Omeprazole Magnesium) 20 Mg Tab Zofran Odt (Ondansetron Odt) 4 Mg Tab 4 Mg SL Q12HR PRN Celexa (Citalopram Hydrobromide) 40 Mg Tab 40 Mg PO DAILY Allergies: Coded Allergies: codeine (Unverified Adverse Reaction, Severe, Nausea/Vomiting, 09/27/17) Active Ordered Medications Administered Medications Medications (Trade) Dose Ordered Sig/Monica Route PRN Reason Start Time Stop Time Status Last Admin Dose Admin Sodium Chloride 1,000 ml @ 125 mls/hr Q8H IV 09/27/17 10:59 09/27/17 10:59 Ondansetron HCl (Zofran Inj) 4 mg Q6H PRN IVP NAUSEA OR VOMITING 09/27/17 11:00 09/27/17 14:57 Enoxaparin Sodium (Lovenox Inj) 40 mg Q24H SQ 09/27/17 12:00 09/27/17 12:24 Family History Hypertension Social History Patient smokes one half pack per day No alcohol abuse No illicit drug abuse Physical Exam Vital Signs Vital Signs Date Time Temp Pulse Resp B/P (MAP) Pulse Ox O2 Delivery O2 Flow Rate FiO2 09/27/17 12:00 98.2 63 15 182/76 (111) 97 09/27/17 11:45 09/27/17 10:53 81 16 186/80 (115) 98 Room Air 09/27/17 08:02 97 Room Air 09/27/17 06:22 98.4 65 14 183/85 (117) 98 Physical Exam GENERAL: NAD, A&Ox3 HEAD: Normocephalic. NECK: Supple, trachea midline. No lymphadenopathy. EYES: No scleral icterus. No injection or drainage. CARDIOVASCULAR: Regular rate and rhythm without murmurs, gallops, or rubs. RESPIRATORY: Breath sounds equal bilaterally. No accessory muscle use. GASTROINTESTINAL: Abdomen soft, non-tender, nondistended. MUSCULOSKELETAL: No cyanosis, or edema. Mild bruise of forehead SKIN: Warm and dry. NEURO: No focal neurological deficitis. Laboratory Laboratory Tests Test 09/27/17 07:00 09/27/17 08:12 White Blood Count 17.4 Red Blood Count 4.86 Hemoglobin 14.8 Hematocrit 44.8 Mean Corpuscular Volume 92.1 Mean Corpuscular Hemoglobin 30.4 Mean Corpuscular Hemoglobin Concent 33.0 Red Cell Distribution Width 13.2 Platelet Count 192 Mean Platelet Volume 12.1 Neutrophils (%) (Auto) 87.3 Lymphocytes (%) (Auto) 8.8 Monocytes (%) (Auto) 2.4 Eosinophils (%) (Auto) 0.0 Basophils (%) (Auto) 1.5 Neutrophils # (Auto) 15.2 Lymphocytes # (Auto) 1.5 Monocytes # (Auto) 0.4 Eosinophils # (Auto) 0.0 Basophils # (Auto) 0.3 CBC Comment DIFF FINAL Differential Comment Blood Urea Nitrogen 11 Creatinine 0.79 Random Glucose 117 Total Protein 8.3 Albumin 4.3 Calcium Level 8.9 Alkaline Phosphatase 76 Aspartate Amino Transf (AST/SGOT) 6 Alanine Aminotransferase (ALT/SGPT) 12 Total Bilirubin 0.5 Sodium Level 135 Potassium Level 3.4 Chloride Level 100 Carbon Dioxide Level 25.0 Anion Gap 10 Estimat Glomerular Filtration Rate 77 Lipase 90 Human Chorionic Gonadotropin, Quant 2 Urine Collection Type CLEAN CATCH Urine Color YELLOW Urine Turbidity CLEAR Urine pH 6.5 Urine Specific Zwingle 1.010 Urine Protein NEG Urine Glucose (UA) NEG Urine Ketones 40 Urine Occult Blood SMALL Urine Nitrite NEG Urine Bilirubin NEG Urine Urobilinogen 0.2 Urine Leukocyte Esterase NEG Urine WBC 0-2 Urine Squamous Epithelial Cells 0-5 Urine Bacteria MOD Urine Mucus OCC Microscopic Urinalysis Comment CULTURE INDICATED Date/Time Source Procedure Growth Status 09/27/17 08:12 Urine Clean Catch Urine Culture Pending Received Result Diagram: 09/27/17 0700 09/27/17 0700 Caprini VTE Risk Assessment Caprini VTE Risk Assessment: No/Low Risk (score <= 1) Caprini Risk Assessment Model Point Value = 1 Point Value = 2 Point Value = 3 Point Value = 5 Age 41-60 Minor surgery BMI > 25 kg/m2 Swollen legs Varicose veins or History of unexplained or recurrent spontaneous Oral contraceptives or hormone replacement Sepsis (< 1 month) Serious lung disease, including pneumonia (< 1 month) Abnormal pulmonary function Acute myocardial infarction Congestive heart failure (< 1 month) History of inflammatory bowel disease Medical patient at bed rest Age 61-74 Arthroscopic surgery Major open surgery (> 45 min) Laparoscopic surgery (> 45 min) Malignancy Confined to bed (> 72 hours) Immobilizing plaster cast Central venous access Age >= 75 History of VTE Family history of VTE Factor V Leiden Prothrombin [id number] Lupus anticoagulant Anticardiolipin antibodies Elevated serum homocysteine Heparin-induced thrombocytopenia Other congenital or acquired thrombophilia Stroke (< 1 month) Elective arthroplasty Hip, pelvis, or leg fracture Acute spinal cord injury (< 1 month) Prophylaxis Regimen Total Risk Factor Score Risk Level Prophylaxis Regimen 0-1 Low Early ambulation 2 Moderate Order ONE of the following: *Sequential Compression Device (SCD) *Heparin 5000 units SQ BID 3-4 Higher Order ONE of the following medications: *Heparin 5000 units SQ TID *Enoxaparin/Lovenox 40 mg SQ daily (WT < 150 kg, CrCl > 30 mL/min) *Enoxaparin/Lovenox 30 mg SQ daily (WT < 150 kg, CrCl > 10-29 mL/min) *Enoxaparin/Lovenox 30 mg SQ BID (WT < 150 kg, CrCl > 30 mL/min) AND/OR *Sequential Compression Device (SCD) 5 or more Highest Order ONE of the following medications: *Heparin 5000 units SQ TID (Preferred with Epidurals) *Enoxaparin/Lovenox 40 mg SQ daily (WT < 150 kg, CrCl > 30 mL/min) *Enoxaparin/Lovenox 30 mg SQ daily (WT < 150 kg, CrCl > 10-29 mL/min) *Enoxaparin/Lovenox 30 mg SQ BID (WT < 150 kg, CrCl > 30 mL/min) AND *Sequential Compression Device (SCD) Assessment and Plan Problem List: (1) Syncope ICD Code: R55 - Syncope and collapse (2) Urinary tract infection ICD Code: N39.0 - Urinary tract infection, site not specified (3) Dehydration ICD Code: E86.0 - Dehydration Status: Acute (4) Intractable nausea and vomiting ICD Code: R11.2 - Nausea with vomiting, unspecified Status: Acute (5) Colitis ICD Code: K52.9 - Noninfective gastroenteritis and colitis, unspecified Status: Acute (6) Leukocytosis ICD Code: D72.829 - Elevated white blood cell count, unspecified Status: Acute (7) Intractable vomiting ICD Code: R11.10 - Vomiting, unspecified Status: Acute (8) Intractable abdominal pain ICD Code: R10.9 - Unspecified abdominal pain Status: Acute (9) Enteritis ICD Code: K52.9 - Noninfective gastroenteritis and colitis, unspecified Status: Acute (10) Hypokalemia ICD Code: E87.6 - Hypokalemia Status: Acute (11) Nausea vomiting and diarrhea ICD Code: R11.2 - Nausea with vomiting, unspecified; R19.7 - Diarrhea, unspecified Status: Acute (12) Abdominal pain ICD Code: R10.9 - Unspecified abdominal pain Status: Acute Assessment and Plan 47-year-old female admitted secondary to a syncopal episode related to urinary tract infection and hyperemesis Syncope Monitor on telemetry Orthostatic blood pressure checks Check carotid ultrasound Etiology is suspected to be related to vasovagal secondary to vomiting Urinary tract infection Rocephin started Follow cultures Gastroenteritis Hyperemesis Hyponatremia Hypokalemia Improved IV hydration overnight Depression Gen. anxiety disorder Continue baseline treatments Cardiovascular disease Gastroesophageal reflux disease History of gastric ulcer History of pancreatitis History of sphincter of the dysfunction Old myocardial infarction No exacerbations of these conditions Follow clinically DVT prophylaxis SCDs given recent fall and gastroenteritis Problem Qualifiers (1) Intractable nausea and vomiting: Qualified Codes: G43.A1 - Cyclical vomiting, intractable Jerry Ardon MD Sep 27, 2017 19:03
[2017-09-27] MEDS: LORazepam 0.5 MG TAB PO PRN (19:44)
[2017-09-27] MEDS: SODIUM CHLORIDE 0.9% FLUSH 10 ML FLUSH IV FLUSH SCH (19:44)
[2017-09-27] MEDS ORDERED: cefTRIAXone INJ 1,000 MG in SODIUM CHLORIDE 0.9% INJ 100 ML IV SCH (20:00)
[2017-09-27] MEDS ORDERED: ACETAMINOPHEN 325 MG TAB PO PRN (21:15)
[2017-09-27] MEDS ORDERED: cloNIDine HCL 0.1 MG TAB PO ONE (21:15)
--- NOTE | 2017-09-27 22:12 | RADRPT ---
EXAM DATE/TIME: 09/27/2017 21:46 [facility] COMPARISON: No previous studies available for comparison. INDICATIONS : Headaches. RADIATION DOSE: 61.34 CTDIvol (mGy) MEDICAL HISTORY : None SURGICAL HISTORY : None. ENCOUNTER: Initial ACUITY: 1 day PAIN SCALE: 5/10 LOCATION: Bilateral cranial TECHNIQUE: Multiple contiguous axial images were obtained of the head. Using automated exposure control and adj ustment of the mA and/or kV according to patient size, radiation dose was kept as low as reasonably a chievable to obtain optimal diagnostic quality images. DICOM format image data is available electro nically for review and comparison. FINDINGS: CEREBRUM: The ventricles are normal for age. No evidence of midline shift, mass lesion, hemorrhage or acute in farction. No extra-axial fluid collections are seen. POSTERIOR FOSSA: The cerebellum and brainstem are intact. The 4th ventricle is midline. The cerebellopontine angle i s unremarkable. EXTRACRANIAL: The visualized portion of the orbits is intact. SKULL: The calvaria is intact. No evidence of skull fracture. CONCLUSION: No acute intracranial abnormality. Fercho Jaimes MD on September 27, 2017 at 22:10 Board Certified Radiologist. This report was verified electronically.
[2017-09-28] VITALS: BP 181/86; PULSE 59; RESP 20; TEMP 98.6; O2SAT 95
[2017-09-28 00:03] VITALS: PULSE 55
[2017-09-28] MEDS ORDERED: ENALAPRILAT 2.5 MG/2 ML VIAL IV PUSH ONE (01:15)
[2017-09-28 04:00] VITALS: BP 185/83; PULSE 55; RESP 20; TEMP 98.7; O2SAT 98
[2017-09-28] MEDS: SODIUM CHLOR 0.9% 1000 ML INJ 1,000 ML IV SCH ×2 (05:02→08:09)
[2017-09-28] MEDS: ONDANSETRON HCL 4 MG/2 ML VIAL IVP PRN ×2 (05:02→10:55)
[2017-09-28] MEDS: LORazepam 0.5 MG TAB PO PRN (06:13)
[2017-09-28] MEDS ORDERED: cloNIDine HCL 0.1 MG TAB PO ONE (06:15)
[2017-09-28] MEDS: LACTOBACILLUS ACIDOPHILUS TAB PO SCH ×2 (08:08→12:11)
[2017-09-28] MEDS: SODIUM CHLORIDE 0.9% FLUSH 10 ML FLUSH IV FLUSH SCH (08:09)
[2017-09-28 08:14] VITALS: BP_SYST 117; BP_SYST 125; BP_SYST 130; BP_DIAS 66; BP_DIAS 67; BP_DIAS 68; PULSE 53; RESP 16; TEMP 98.7; O2SAT 95
[2017-09-28 08:16] LABS: AUTOMATED NEUTROPHIL # 7.6 TH/MM3 (1.8-7.7); BASOPHIL # 0.1 TH/MM3 (0-0.2); BASOPHIL % 0.7 % (0.0-2.0); EOSINOPHIL % 0.2 % (0.0-4.0); HEMATOCRIT 41.8 % (35.0-46.0); LYMPH % 18.9 % (9.0-44.0); LYMPHOCYTE # 1.9 TH/MM3 (1.0-4.8); MEAN CELL VOLUME 91.8 FL (80.0-100.0); MEAN CORPUSCULAR HEMOGLOBIN 30.7 PG (27.0-34.0); MEAN CORPUSCULAR HGB CONC 33.5 % (32.0-36.0); MEAN PLATELET VOLUME 12.3 FL (7.0-11.0); MONO % 4.6 % (0.0-8.0); MONOCYTE # 0.5 TH/MM3 (0-0.9); NEUT % 75.6 % (16.0-70.0); PLATELET COUNT 136 TH/MM3 (150-450); RED BLOOD COUNT 4.55 MIL/MM3 (4.00-5.30); RED CELL DISTRIBUTION WIDTH 13.2 % (11.6-17.2); WHITE BLOOD COUNT 10.1 TH/MM3 (4.0-11.0)
[2017-09-28 08:25] LABS: CHLORIDE 104 MEQ/L (98-107); SODIUM (NA) 137 MEQ/L (136-145)
[2017-09-28 08:34] LABS: CALCIUM 8.3 MG/DL (8.5-10.1)
[2017-09-28 08:50] LABS: ALBUMIN 3.5 GM/DL (3.4-5.0); ALKALINE PHOSPHATASE 63 U/L (45-117); ALT (GPT) 12 U/L (10-53); AST (GOT) 11 U/L (15-37); BICARBONATE 24.7 MEQ/L (21.0-32.0); BLOOD UREA NITROGEN 5 MG/DL (7-18); CREATININE 0.52 MG/DL (0.50-1.00); GLOMERULAR FILTRATION RATE 125 ML/MIN (>89); GLUCOSE,RANDOM 107 MG/DL (74-106); TOTAL BILIRUBIN ADULT 0.6 MG/DL (0.2-1.0); TOTAL PROTEIN 6.9 GM/DL (6.4-8.2)
[2017-09-28] MEDS ORDERED: CITALOPRAM HYDROBROMIDE 40 MG TAB PO SCH (09:00)
[2017-09-28] MEDS ORDERED: POTASSIUM CHLORIDE 10 MEQ CONTROLLED RELEASE TAB PO ONE (09:15)
--- NOTE | 2017-09-28 11:42 | RADRPT ---
EXAM DATE/TIME: 09/28/2017 08:18 [facility] COMPARISON: No previous studies available for comparison. INDICATIONS : Syncope. MEDICAL HISTORY : Myocardial infarction. Gastroesophageal reflux disease. Ulcer. Pancreatitis. SURGICAL HISTORY : Cholecystectomy. Cervical fusion. Cardiac catheterization. Gallbladder sphincterplasty. CBD stent s. Ovarian cystectomy. ERCP. ENCOUNTER: Initial ACUITY: 1 day PAIN SCORE: 0/10 LOCATION: Bilateral neck PEAK SYSTOLIC VELOCITIES (cm/sec): ICA/CCA RATIO: Right: 1.3 Left: 0.9 ICA: Right: 102 Left: 94 CCA: Right: 80 Left: 100 ECA: Right: 242 Left: 83 VERTEBRAL: Right: 110 antegrade Left: 24 antegrade Elevated flow velocities and ICA/CCA ratios have been found to correlate with increased degrees of vessel stenosis, calculated as percentage of diameter relative to a normal segment of distal ICA/CCA FINDINGS: RIGHT CAROTID: No significant stenosis is visualized. The waveforms are within normal limits. LEFT CAROTID: No significant stenosis is visualized. The waveforms are within normal limits. VERTEBRAL ARTERIES: Antegrade flow is seen in both vertebral arteries. MISCELLANEOUS: None. CONCLUSION: 1. Minimal plaque in the carotid arteries without hemodynamically significant stenosis. Diminished fl ow velocity in the left vertebral artery are of uncertain etiology. Dominic Sow MD on September 28, 2017 at 11:39 Board Certified Radiologist. This report was verified electronically.
[2017-09-28 11:54] VITALS: BP 140/73; PULSE 52; RESP 15; TEMP 99; O2SAT 99
[2017-09-28] MEDS: ENOXAPARIN SODIUM 40 MG/0.4 ML SYRINGE SQ SCH (12:11)
--- NOTE | 2017-09-28 14:51 | HHI.DS ---
Discharge Summary Admission Date Sep 27, 2017 at 10:58 Discharge Date: Sep 28, 2017 Admitting Diagnosis HYPOKALEMIA, INTERACTABLE NAUSEA AND VOMITING, DEHYDRATION (1) Syncope ICD Code: R55 - Syncope and collapse Diagnosis: Principal (2) Urinary tract infection ICD Code: N39.0 - Urinary tract infection, site not specified Diagnosis: Principal (3) Dehydration ICD Code: E86.0 - Dehydration Diagnosis: Principal Status: Acute (4) Intractable nausea and vomiting ICD Code: R11.2 - Nausea with vomiting, unspecified Diagnosis: Principal Status: Acute (5) Colitis ICD Code: K52.9 - Noninfective gastroenteritis and colitis, unspecified Diagnosis: Principal Status: Acute (6) Leukocytosis ICD Code: D72.829 - Elevated white blood cell count, unspecified Diagnosis: Principal Status: Acute (7) Intractable vomiting ICD Code: R11.10 - Vomiting, unspecified Diagnosis: Principal Status: Acute (8) Intractable abdominal pain ICD Code: R10.9 - Unspecified abdominal pain Diagnosis: Principal Status: Acute (9) Enteritis ICD Code: K52.9 - Noninfective gastroenteritis and colitis, unspecified Diagnosis: Principal Status: Acute (10) Hypokalemia ICD Code: E87.6 - Hypokalemia Diagnosis: Principal Status: Acute (11) Nausea vomiting and diarrhea ICD Code: R11.2 - Nausea with vomiting, unspecified; R19.7 - Diarrhea, unspecified Diagnosis: Principal Status: Acute (12) Abdominal pain ICD Code: R10.9 - Unspecified abdominal pain Diagnosis: Principal Status: Acute Procedures None Brief History - From Admission Mrs. Tyler is a 47-year-old female. She came into the hospital after having a syncopal episode at home. This was preceded by nausea and vomiting for about 2 days. She has no prior history of seizure or syncope. No fevers. With treatment here she is feeling better and able to tolerate some by mouth intake at this point. Diarrhea had been present earlier but is no longer present. Mild disruptions of sodium and potassium are present but not overt. White blood cell count is elevated, urinary tract infection is present. No other complaints at this time. CBC/BMP: 09/28/17 0735 09/28/17 0735 Significant Findings Laboratory Tests Test 09/27/17 07:00 09/27/17 08:12 09/28/17 07:35 White Blood Count 17.4 TH/MM3 (4.0-11.0) Mean Platelet Volume 12.1 FL (7.0-11.0) 12.3 FL (7.0-11.0) Neutrophils (%) (Auto) 87.3 % (16.0-70.0) 75.6 % (16.0-70.0) Lymphocytes (%) (Auto) 8.8 % (9.0-44.0) Neutrophils # (Auto) 15.2 TH/MM3 (1.8-7.7) Basophils # (Auto) 0.3 TH/MM3 (0-0.2) Random Glucose 117 MG/DL (74-106) 107 MG/DL (74-106) Total Protein 8.3 GM/DL (6.4-8.2) Aspartate Amino Transf (AST/SGOT) 6 U/L (15-37) 11 U/L (15-37) Sodium Level 135 MEQ/L (136-145) Potassium Level 3.4 MEQ/L (3.5-5.1) 3.2 MEQ/L (3.5-5.1) Estimat Glomerular Filtration Rate 77 ML/MIN (>89) Urine Ketones 40 mg/dL (NEG) Urine Occult Blood SMALL (NEG) Urine Bacteria MOD /hpf (NONE) Platelet Count 136 TH/MM3 (150-450) Blood Urea Nitrogen 5 MG/DL (7-18) Calcium Level 8.3 MG/DL (8.5-10.1) Hospital Course Mrs. Vargas is a 47-year-old female. She was admitted secondary to a syncopal episode. This had occurred after persistent hyperemesis. Etiology may have been vasovagal. Workup here is negative including telemetry, orthostatic blood pressure testing, and carotid ultrasound. Urinary tract infection was suspected based on UA, microbiology testing of the urine showed no specific infection. Patient feels better today and is medically stable for discharge to home today. Pt Condition on Discharge: Stable Discharge Disposition: Discharge Home Discharge Time: <= 30 minutes Discharge Instructions DIET: Follow Instructions for: As Tolerated, No Restrictions Activities you can perform: Regular-No Restrictions Jerry Ardon MD Sep 28, 2017 14:51
== END 2017-09-28 14:34 | disposition home or self-care (01) ==
LOC: PHED 06:16 → PHEDA 10:58 → PH3A 11:31
PROVIDERS: ADMIT Hospitalist; ATTEND Hospitalist
DX: R55 Syncope and collapse (principal); N39.0 Urinary tract infection, site not specified; E86.0 Dehydration; K52.9 Noninfective gastroenteritis and colitis, unspecified; E87.6 Hypokalemia; E87.1 Hypo-osmolality and hyponatremia; G43.A1 Cyclical vomiting, in migraine, intractable; I25.2 Old myocardial infarction; K21.9 Gastro-esophageal reflux disease without esophagitis; F32.9 Major depressive disorder, single episode, unspecified; F41.1 Generalized anxiety disorder; F17.200 Nicotine dependence, unspecified, uncomplicated; Z87.11 Personal history of peptic ulcer disease
CPT/HCPCS: 70450; 80053; 81001; 83690; 84702; 85025; 87086; 93880; 96361; 96365; 96375; 96376; 99285; G0378; J0696; J1650; J2060; J2405; J7030

== ENCOUNTER 2017-09-30 06:10 | Inpatient (IN) | payer OTHER ==
[2017-09-30] VITALS (13 sets, daily range): BP systolic 144–203; BP diastolic 69–103; PULSE 61–138; RESP 14–28; TEMP 98.4–99.5; O2SAT 96–100
[~2017-09-30] VITALS: Ht 162.6 cm; Wt 70.0 kg
[~2017-09-30 06:10] MED LIST changes: +PRIL20TA2; -REGL5TAB PO; -ZOFR8TAB PO
[2017-09-30] MEDS ORDERED: SODIUM CHLORIDE 0.9% FLUSH 10 ML FLUSH IVF PRN (06:15)
[2017-09-30 06:43] LABS: AUTOMATED NEUTROPHIL # 6.6 TH/MM3 (1.8-7.7); BASOPHIL # 0.3 TH/MM3 (0-0.2); BASOPHIL % 2.8 % (0.0-2.0); EOSINOPHIL % 0.4 % (0.0-4.0); HEMATOCRIT 47.5 % (35.0-46.0); HEMOGLOBIN 15.6 GM/DL (11.6-15.3); LYMPH % 24.2 % (9.0-44.0); LYMPHOCYTE # 2.4 TH/MM3 (1.0-4.8); MEAN CELL VOLUME 91.7 FL (80.0-100.0); MEAN CORPUSCULAR HGB CONC 32.7 % (32.0-36.0); MEAN PLATELET VOLUME 12.6 FL (7.0-11.0); MONO % 7.2 % (0.0-8.0); MONOCYTE # 0.7 TH/MM3 (0-0.9); NEUT % 65.4 % (16.0-70.0); PLATELET COUNT 142 TH/MM3 (150-450); RED BLOOD COUNT 5.18 MIL/MM3 (4.00-5.30); RED CELL DISTRIBUTION WIDTH 12.9 % (11.6-17.2)
[2017-09-30 06:54] LABS: CHLORIDE 99 MEQ/L (98-107); SODIUM (NA) 132 MEQ/L (136-145)
[2017-09-30 06:57] LABS: INTERNATIONAL NORMALIZED RATIO 1.1 RATIO; PROTHROMBIN TIME - PATIENT 11.4 SEC (9.8-11.6)
[2017-09-30 06:58] LABS: ALBUMIN 4.1 GM/DL (3.4-5.0); BICARBONATE 22.5 MEQ/L (21.0-32.0); BLOOD UREA NITROGEN 12 MG/DL (7-18); CALCIUM 8.7 MG/DL (8.5-10.1); GLUCOSE,RANDOM 98 MG/DL (74-106); MAGNESIUM 1.8 MG/DL (1.5-2.5)
[2017-09-30 07:11] LABS: ALKALINE PHOSPHATASE 70 U/L (45-117); ALT (GPT) 82 U/L (10-53); AST (GOT) 50 U/L (15-37); CREATININE 0.81 MG/DL (0.50-1.00); GLOMERULAR FILTRATION RATE 75 ML/MIN (>89); TOTAL BILIRUBIN ADULT 0.7 MG/DL (0.2-1.0); TOTAL PROTEIN 7.9 GM/DL (6.4-8.2); TROPONIN I 0.02 NG/ML (0.02-0.05)
[2017-09-30] MEDS ORDERED: SODIUM CHLOR 0.9% 1000 ML INJ 1,000 ML IV ONE (07:15)
[2017-09-30] MEDS ORDERED: ONDANSETRON HCL 4 MG/2 ML VIAL IV PUSH ONE (07:15)
[2017-09-30] MEDS ORDERED: KETOROLAC TROMETHAMINE 30 MG/ML (IVP) VIAL IV PUSH ONE (07:15)
[2017-09-30] MEDS ORDERED: LEVS0.123 PO (07:17)
--- NOTE | 2017-09-30 07:18 | PD ---
HPI Chief Complaint: vomiting Time Seen by Provider: 07:05 Travel History International Travel<30 days: No Contact w/Intl Traveler<30days: No Traveled to known affect area: No History of Present Illness HPI 47-year-old female states that when she went home she started vomiting again and having upper abdominal pain. She states she has frequent history of this and has her gallbladder out. She states that she wants something to help with the vomiting and the pain. She states that she has no other concurrent complaints at this time. She states that the pain in her abdomen had gone into her chest some but that is gone away. She states that this feels similar to her prior attacks that she's had multiple times. She denies specific modifying factors. Quality is sharp. Severity is moderate. She denies specific migration of the pain. She denies any syncopal episode this time. 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 AT END OF JULY 2012) Pancreatitis: Yes Radiation Therapy: No Renal Failure: No Seizures: No Sickle Cell Disease: No Sleep Apnea: No Thyroid Disease: No Ulcer: No ?: Not Menopausal: Yes Past Surgical History Abdominal Surgery: Yes (GALLBLADDER, SPHINCTERPLASTY AND MULTIPLE STENTS PLACED IN COMMON BILE DUCT) AICD: No Arteriovenous Shunt: No Body Medical Devices: TITANIUM PLATE AND SCREWS IN NECK Cardiac Surgery: Yes (CATHETERIZATION ) Cholecystectomy: Yes (1995) Ear Surgery: No Endocrine Surgery: No Eye Surgery: No Genitourinary Surgery: No Gynecologic Surgery: Yes (OVARIAN CYSTECTOMY) Insulin Pump: No Joint Replacement: No Neurologic Surgery: Yes (CERVICAL FUSION ) Oral Surgery: Yes (DENTURES, WISDOM TEETH) Pacemaker: No Thoracic Surgery: No Other Surgery: Yes (ERCP 01/20,08/24, 12/30/06,03/24 WITH STENT IN, REMOVAL OF STENT 08/2007) Social History Alcohol Use: No (denies) Tobacco Use: Yes (1/2 PPD) Substance Use: No Allergies-Medications (Allergen,Severity, Reaction): Coded Allergies: codeine (Unverified Adverse Reaction, Severe, Nausea/Vomiting, 09/30/17) Reported Meds & Prescriptions Reported Meds & Active Scripts Active Phenergan Supp (Promethazine HCl) 25 Mg Supp 25 Mg RECTAL Q6H PRN Pepcid (Famotidine) 20 Mg Tab 20 Mg PO BID Reported Levsin (Hyoscyamine Sulfate) 0.125 Mg Tab 0.125 Mg PO Q6H Prilosec (Omeprazole Magnesium) 20 Mg Tab Zofran Odt (Ondansetron Odt) 4 Mg Tab 4 Mg SL Q12HR PRN Celexa (Citalopram Hydrobromide) 40 Mg Tab 40 Mg PO DAILY Review of Systems Except as stated in HPI: all other systems reviewed are Neg Physical Exam Narrative GENERAL: 47-year-old female in no apparent distress SKIN: Focused skin assessment warm/dry. HEAD: Atraumatic. Normocephalic. EYES: Pupils equal and round. No scleral icterus. No injection or drainage. ENT: No nasal bleeding or discharge. Mucous membranes pink and moist. NECK: Trachea midline. No JVD. CARDIOVASCULAR: Regular rate and rhythm. RESPIRATORY: No accessory muscle use. Clear to auscultation. Breath sounds equal bilaterally. GASTROINTESTINAL: Abdomen soft, mild tenderness in epigastric region, nondistended. No rebound or guarding. MUSCULOSKELETAL: No obvious deformities. No clubbing. No cyanosis. No edema. NEUROLOGICAL: Awake and alert. Motor grossly within normal limits. Normal speech. PSYCHIATRIC: Appropriate mood and affect; insight and judgment normal. Data Data Last Documented VS Vital Signs Date Time Temp Pulse Resp B/P (MAP) Pulse Ox O2 Delivery O2 Flow Rate FiO2 09/30/17 08:45 64 14 173/86 (115) 100 Room Air 09/30/17 06:20 99.5 Orders Orders Electrocardiogram (09/30/17 06:13) Ckmb (Isoenzyme) Profile (09/30/17 06:13) Complete Blood Count With Diff (09/30/17 06:13) Comprehensive Metabolic Panel (09/30/17 06:13) Magnesium (Mg) (09/30/17 06:13) Prothrombin Time / Inr (Pt) (09/30/17 06:13) Act Partial Throm Time (Ptt) (09/30/17 06:13) Troponin I (09/30/17 06:13) Ecg Monitoring (09/30/17 06:13) Iv Access Insert/Monitor (09/30/17 06:13) Oximetry (09/30/17 06:13) Oxygen Administration (09/30/17 06:13) Sodium Chloride 0.9% Flush (Ns Flush) (09/30/17 06:15) Chest, Pa & Lat (09/30/17 ) CKMB (09/30/17 06:30) CKMB% (09/30/17 06:30) Ct Abd/Pel W Iv Contrast(Rout) (09/30/17 ) Ondansetron Inj (Zofran Inj) (09/30/17 07:15) Sodium Chlor 0.9% 1000 Ml Inj (Ns 1000 M (09/30/17 07:15) Ketorolac Inj (Toradol Inj) (09/30/17 07:15) Urinalysis - C+S If Indicated (09/30/17 07:19) Iohexol 350 Inj (Omnipaque 350 Inj) (09/30/17 08:10) Pantoprazole Inj (Protonix Inj) (09/30/17 08:45) Ed Discharge Order (09/30/17 09:19) Labs Laboratory Tests Test 09/30/17 06:30 09/30/17 08:55 White Blood Count 10.0 TH/MM3 Red Blood Count 5.18 MIL/MM3 Hemoglobin 15.6 GM/DL Hematocrit 47.5 % Mean Corpuscular Volume 91.7 FL Mean Corpuscular Hemoglobin 30.0 PG Mean Corpuscular Hemoglobin Concent 32.7 % Red Cell Distribution Width 12.9 % Platelet Count 142 TH/MM3 Mean Platelet Volume 12.6 FL Neutrophils (%) (Auto) 65.4 % Lymphocytes (%) (Auto) 24.2 % Monocytes (%) (Auto) 7.2 % Eosinophils (%) (Auto) 0.4 % Basophils (%) (Auto) 2.8 % Neutrophils # (Auto) 6.6 TH/MM3 Lymphocytes # (Auto) 2.4 TH/MM3 Monocytes # (Auto) 0.7 TH/MM3 Eosinophils # (Auto) 0.0 TH/MM3 Basophils # (Auto) 0.3 TH/MM3 CBC Comment DIFF FINAL Differential Comment Prothrombin Time 11.4 SEC Prothromb Time International Ratio 1.1 RATIO Activated Partial Thromboplast Time 21.9 SEC Blood Urea Nitrogen 12 MG/DL Creatinine 0.81 MG/DL Random Glucose 98 MG/DL Total Protein 7.9 GM/DL Albumin 4.1 GM/DL Calcium Level 8.7 MG/DL Magnesium Level 1.8 MG/DL Alkaline Phosphatase 70 U/L Aspartate Amino Transf (AST/SGOT) 50 U/L Alanine Aminotransferase (ALT/SGPT) 82 U/L Total Bilirubin 0.7 MG/DL Sodium Level 132 MEQ/L Potassium Level 3.4 MEQ/L Chloride Level 99 MEQ/L Carbon Dioxide Level 22.5 MEQ/L Anion Gap 11 MEQ/L Estimat Glomerular Filtration Rate 75 ML/MIN Total Creatine Kinase 187 U/L Creatine Kinase MB 0.8 NG/ML Troponin I 0.02 NG/ML Urine Collection Type CLEAN CATCH Urine Color YELLOW Urine Turbidity CLEAR Urine pH 7.5 Urine Specific Spiro LESS/EQUAL 1.005 Urine Protein NEG mg/dL Urine Glucose (UA) NEG mg/dL Urine Ketones 40 mg/dL Urine Occult Blood TRACE Urine Nitrite NEG Urine Bilirubin NEG Urine Urobilinogen 0.2 MG/DL Urine Leukocyte Esterase NEG Urine RBC 0-3 /hpf Urine Squamous Epithelial Cells 0-5 /hpf Microscopic Urinalysis Comment CULT NOT INDICATED MDM Medical Decision Making Medical Screen Exam Complete: Yes Emergency Medical Condition: Yes Medical Record Reviewed: Yes (past history confirm, recent hospitalization reviewed) Interpretation(s) CBC & BMP Diagram 09/30/17 06:30 Total Protein 7.9 #, Albumin 4.1 #, Calcium Level 8.7, Magnesium Level 1.8, Alkaline Phosphatase 70, Aspartate Amino Transf (AST/SGOT) 50 H, Alanine Aminotransferase (ALT/SGPT) 82 H, Total Bilirubin 0.7 Last 24 hours Impressions Chest X-Ray 09/30/17 0000 Signed Impressions: Service Date/Time: Saturday, September 30, 2017 07:17 - CONCLUSION: 1. No acute cardiopulmonary disease. Sohan Bojorquez MD Abdomen/Pelvis CT 09/30/17 0000 Signed Impressions: Service Date/Time: Saturday, September 30, 2017 08:05 - CONCLUSION: 1. Mild enlarged fatty liver. 2. Degenerative changes and scoliosis of the lumbar spine. Alex King MD Differential Diagnosis Electrolyte abnormality, stone, gastritis, musculoskeletal.... Narrative Course Will check additionally chest x-ray and CT abdomen and pelvis and follow blood work ordered from prior physician. We'll provide with Toradol and Zofran and IV fluids ed workup no acute, no emesis here, Patient denies any new complaints and states that they are feeling better. Patient happy with care, all questions answered. Patient knows that follow up is incumbent on them and to return to the emergency room immediately if new or worsening symptoms develop. Patient given strict return precautions, vitals reviewed and are normal, agrees to further workup as an outpatient. Patient requesting Phenergan for nausea control at home and will place back on Pepcid as she states she's not on anything for her stomach in terms of acid reduction or blockage Diagnosis Primary Impression: Abdominal pain Qualified Codes: R10.13 - Epigastric pain Additional Impression: Nausea & vomiting Qualified Codes: R11.2 - Nausea with vomiting, unspecified Patient Instructions: General Instructions Additional Instructions: return as needed, tylenol as needed, follow with primary tuesday Med/Other Pt SpecificInfo: Prescription(s) given Scripts Promethazine Supp (Phenergan Supp) 25 Mg Supp 25 MG RECTAL Q6H Y for NAUSEA OR VOMITING, #10 SUPP 0 Refills Prov: Yessica Alvarez MD 09/30/17 Famotidine (Pepcid) 20 Mg Tab 20 MG PO BID, #20 TAB 0 Refills Prov: Yessica Alvarez MD 09/30/17 Disposition: DISCHARGE HOME Condition: Stable Yessica Alvarez MD Sep 30, 2017 07:18
[2017-09-30] MEDS ORDERED: IOHEXOL 350 MG/ML 10 ML VIAL (for RAD DIAG) IVCONTRAST ONE (08:10)
--- NOTE | 2017-09-30 08:26 | RADRPT ---
EXAM DATE/TIME: 09/30/2017 07:17 [facility] COMPARISON: No previous studies available for comparison. INDICATIONS : Chest pain. Nausea and vomiting. MEDICAL HISTORY : Myocardial infarction. Gastroesophageal reflux disease. Ulcer. Pancreatitis SURGICAL HISTORY : Cholecystectomy. Cervical fusion. Cardiac catheterization. Gallbladder ENCOUNTER: Subsequent ACUITY: 3 days PAIN SCORE: 7/10 LOCATION: chest FINDINGS: PA and lateral views of the chest demonstrate the lungs to be symmetrically aerated without evidence of mass, infiltrate or effusion. The cardiomediastinal contours are unremarkable. Fixation hardware in the lower cervical spine. Osseous structures are intact. CONCLUSION: 1. No acute cardiopulmonary disease. Sohan Bojorquez MD on September 30, 2017 at 8:24 Board Certified Radiologist. This report was verified electronically.
--- NOTE | 2017-09-30 08:30 | RADRPT ---
EXAM DATE/TIME: 09/30/2017 08:05 [facility] COMPARISON: CT ABDOMEN & PELVIS W CONTRAST, July 15, 2016, 21:27. INDICATIONS : Epigastric pain. Nausea and vomiting. IV CONTRAST: 85 cc Omnipaque 350 (iohexol) IV ORAL CONTRAST: No oral contrast ingested. RADIATION DOSE: 7.37 CTDIvol (mGy) MEDICAL HISTORY : Pancreatitis. Gastroesophageal reflux disease. Myocardial infarction. SURGICAL HISTORY : Cholecystectomy. Fusion, cervical. ENCOUNTER: Initial ACUITY: 4 - 6 days PAIN SCALE: 9/10 LOCATION: Epigastric TECHNIQUE: Volumetric scanning of the abdomen and pelvis was performed. Using automated exposure control and ad justment of the mA and/or kV according to patient size, radiation dose was kept as low as reasonably achievable to obtain optimal diagnostic quality images. DICOM format image data is available electro nically for review and comparison. FINDINGS: LOWER LUNGS: The visualized lower lungs are clear. LIVER: The liver is enlarged. Mild diffuse infiltration is noted. No focal mass is noted. There is no dilati on of the biliary tree. Status post cholecystectomy. No calcified gallstones. SPLEEN: Normal size without lesion. PANCREAS: Within normal limits. KIDNEYS: Normal in size and shape. There is no mass, stone or hydronephrosis. ADRENAL GLANDS: Within normal limits. VASCULAR: There is no aortic aneurysm. BOWEL/MESENTERY: The stomach, small bowel, and colon demonstrate no acute abnormality. There is no free intraperitone al air or fluid. ABDOMINAL WALL: Within normal limits. RETROPERITONEUM: There is no lymphadenopathy. BLADDER: No wall thickening or mass. REPRODUCTIVE: Within normal limits. INGUINAL: There is no lymphadenopathy or hernia. MUSCULOSKELETAL: Mild degenerative changes and scoliosis of lumbar spine are noted. CONCLUSION: 1. Mild enlarged fatty liver. 2. Degenerative changes and scoliosis of the lumbar spine. Alex King MD on September 30, 2017 at 8:23 Board Certified Radiologist. This report was verified electronically.
[2017-09-30] MEDS ORDERED: PANTOPRAZOLE SODIUM 40 MG VIAL IV PUSH ONE (08:45)
[2017-09-30 09:01] LABS: BILIRUBIN, URINE NEG (NEG); BLOOD, URINE TRACE (NEG); GLUCOSE,URINE NEG (NEG); KETONE, URINE 40 mg/dL (NEG); NITRITE,URINE NEG (NEG); PH, URINE 7.5 (5.0-8.5); URINE COLOR YELLOW (YELLW/STRAW); URINE LEUKOCYTE ESTERASE NEG (NEG)
[2017-09-30 09:07] LABS: RBC, URINE 0-3 /hpf (0-3); SQUAMOUS EPITHELIAL CELL URINE 0-5 /hpf (0-5)
[2017-09-30] MEDS ORDERED: FAMO1TAB37 PO (09:26)
[2017-09-30] MEDS ORDERED: PROM1SUP7 RECTAL (09:26)
[2017-09-30] MEDS ORDERED: LORazepam 1 MG TAB PO ONE (10:15)
--- NOTE | 2017-09-30 10:36 | RADRPT ---
EXAM DATE/TIME: 09/30/2017 10:16 [facility] COMPARISON: CT BRAIN W/O CONTRAST, September 27, 2017, 21:46. INDICATIONS : Altered mental status. New onset seizure. RADIATION DOSE: 62.24 CTDIvol (mGy) ; Patient motion MEDICAL HISTORY : Pancreatitis. Gastroesophageal reflux disease. Myocardial infarction. SURGICAL HISTORY : Fusion, cervical. Cholecystectomy. ENCOUNTER: Initial ACUITY: 1 day PAIN SCALE: 0/10 LOCATION: cranial TECHNIQUE: Multiple contiguous axial images were obtained of the head. Using automated exposure control and adj ustment of the mA and/or kV according to patient size, radiation dose was kept as low as reasonably a chievable to obtain optimal diagnostic quality images. DICOM format image data is available electro nically for review and comparison. FINDINGS: There is some questionable focal increased cortical attenuation in the frontal lobe bilaterally. This was not clearly identified on the prior exam from September 27. Cannot exclude small area of petechial h emorrhage. Recommend further evaluation with MRI of the brain. No mass effect or midline shift. No hydrocephalus. No abnormal extra-axial fluid collections. CONCLUSION: 1. Possible focal gyriform increased attenuation in both frontal lobes. Cannot exclude underlying pat hology, possibly petechial hemorrhage. Recommend further evaluation with MRI. Dominic Swo MD on September 30, 2017 at 10:26 Board Certified Radiologist. This report was verified electronically.
[2017-09-30] MEDS ORDERED: levETIRAcetam INJ 500 MG in SODIUM CHLORIDE 0.9% INJ 100 ML IV ONE (11:00)
[2017-09-30] MEDS ORDERED: FOSPHENYTOIN INJ 1,000 MGPE in SODIUM CHLORIDE 0.9% INJ 50 ML IV ONE (11:15)
--- NOTE | 2017-09-30 11:25 | EKG ---
Date Performed: 09/30/2017 Time Performed: 06:17:54 PTAGE: 47 years EKG: Sinus rhythm NORMAL ECG PREVIOUS TRACING : 09/26/2017 17.22 Since the previous tracing, no significant change noted DOCTOR: Eduardo Sandoval Interpretating Date/Time 09/30/2017 11:24:23
[2017-09-30] MEDS ORDERED: MAGNESIUM HYDROXIDE SUSP 30 ML CUP PO PRN (11:30)
[2017-09-30] MEDS ORDERED: NALOXONE HCL 0.4 MG/ML AMP IV PUSH PRN (11:30)
[2017-09-30] MEDS ORDERED: SODIUM CHLORIDE 0.9% FLUSH 10 ML FLUSH IV FLUSH PRN (11:30)
[2017-09-30] MEDS ORDERED: ONDANSETRON HCL 4 MG/2 ML VIAL IVP PRN (11:30)
[2017-09-30] MEDS ORDERED: GADODIAMIDE PF 287 MG/ML 10 ML VIAL (for RAD MRI) IVCONTRAST ONE (14:36)
[2017-09-30] MEDS: SODIUM CHLOR 0.9% 1000 ML INJ 1,000 ML IV SCH ×2 (14:53→21:45)
--- NOTE | 2017-09-30 16:33 | RADRPT ---
EXAM DATE/TIME: 09/30/2017 14:20 [facility] COMPARISON: No previous studies available for comparison. INDICATIONS : Seizures. CONTRAST: 10 cc Omniscan (gadodiamide) IV MEDICAL HISTORY : None. SURGICAL HISTORY : Cholecystectomy. Fusion, cervical. ENCOUNTER: Initial ACUITY: 1 day PAIN SCORE: 0/10 LOCATION: cranial TECHNIQUE: Multiplanar, multisequence MRI of the brain was performed both prior to and following the administrat ion of paramagnetic contrast. FINDINGS: There are multifocal parenchymal and white matter abnormalities in the brain especially the superior aspect of both frontal lobes and in the parieto-occipital region including into the posterior fossa. No significant signal abnormality on the diffusion-weighted images, T1 weighted images significant en hancement postcontrast. There is no significant mass effect or midline shift. No hydrocephalus. CONCLUSION: 1. Multifocal parenchymal and white matter abnormalities, relatively symmetric predominantly on the f lair and T2-weighted images. Findings are nonspecific but the differential diagnosis includes hyperte nsive encephalopathy, encephalitis and progressive multifocal leukoencephalopathy. Dominic Sow MD on September 30, 2017 at 16:28 Board Certified Radiologist. This report was verified electronically.
[2017-09-30] MEDS: MORPHINE SULFATE 2 MG/ML INJ IV PUSH PRN ×2 (18:05→21:07)
[2017-09-30] MEDS ORDERED: HYOSCYAMINE SOLN 0.125 MG/ML 15 ML BTL PO PRN (18:15)
[2017-09-30] MEDS: SODIUM CHLORIDE 0.9% FLUSH 10 ML FLUSH IV FLUSH SCH (21:00)
--- NOTE | 2017-09-30 21:09 | HHI.HP ---
[facility] Service [facility] Primary Care Physician El Jackson MD Admission Diagnosis seizure, abnormal CT Diagnoses: Travel History International Travel<30 Days: No Contact w/Intl Traveler <30 Da: No Traveled to Known Affected Are: No History of Present Illness Mrs. Vargas is a 47 year old female. She was admitted at [facility] recently for gastroenteritis and syncopal vs. seizure (LOC). She has no prior seizure disorder history. She had vomited recurrently and ended up loosing consciousness and striking her forehead on the floor at that time. CT had been negative at that time. Gastroenteritis symptoms resolved and she had a negative syncopal work up. No seizure activity witnessed then. She came back to the ER due to recurrence of her GI symptoms. GI symptoms resolved with antiemetics in the ER and she was discharged, but subsequently had a witnessed seizure in the waiting room. Repeat brain imaging was performed and shows petechial hemorrhages in the frontal lobes, which is new compared to three days prior. When seen in the ER, she is alert/oriented, but feels weak/fatigued. No other complaints. Review of Systems Constitutional: COMPLAINS OF: Fatigue, DENIES: Fever, Chills, Night Sweats Eyes: DENIES: Diplopia, Eye inflammation, Eye pain Ears, nose, mouth, throat: DENIES: Hearing loss, Vertigo, Nasal discharge Respiratory: DENIES: Cough, Wheezing, Shortness of breath Cardiovascular: DENIES: Chest pain, Palpitations, Syncope Gastrointestinal: DENIES: Abdominal pain, Black stools, Bloody stools Musculoskeletal: DENIES: Joint pain, Muscle aches, Stiffness, Joint Swelling Integumentary: DENIES: Abnormal pigmentation, Pruritus, Rash, Nail changes Hematologic/lymphatic: DENIES: Bruising, Lymphadenopathy Immunologic/allergic: DENIES: Eczema, Urticaria Neurologic: COMPLAINS OF: Headache, Seizures, DENIES: Abnormal gait, Paresthesias Psychiatric: COMPLAINS OF: Confusion, DENIES: Anxiety, Depression Past Family Social History Past Medical History Depression Gen. anxiety disorder Cardia vascular disease Gastroesophageal reflux disease History of gastric ulcer History of pancreatitis History of sphincter of the dysfunction Old myocardial infarction Past Surgical History Cardiac catheterization Titanium plate and screws and neck History of cholecystectomy History of ovarian cystectomy Sphincter plasty Common bile duct stents Cervical fusion ERCP Reported Medications Reported Meds & Active Scripts Active Reported Levsin (Hyoscyamine Sulfate) 0.125 Mg Tab 0.125 Mg PO Q6H Prilosec (Omeprazole Magnesium) 20 Mg Tab Zofran Odt (Ondansetron Odt) 4 Mg Tab 4 Mg SL Q12HR PRN Celexa (Citalopram Hydrobromide) 40 Mg Tab 40 Mg PO DAILY Allergies: Coded Allergies: codeine (Unverified Adverse Reaction, Severe, Nausea/Vomiting, 09/30/17) Active Ordered Medications Administered Medications Medications (Trade) Dose Ordered Sig/Monica Route PRN Reason Start Time Stop Time Status Last Admin Dose Admin Morphine Sulfate (Morphine Inj) 2 mg Q3H PRN IV PUSH Pain 3-5; if unable to take PO 09/30/17 11:30 09/30/17 18:05 Family History Hypertension Social History Patient smokes one half pack per day No alcohol abuse No illicit drug abuse Physical Exam Vital Signs Vital Signs Date Time Temp Pulse Resp B/P (MAP) Pulse Ox O2 Delivery O2 Flow Rate FiO2 09/30/17 18:11 65 09/30/17 18:11 16 09/30/17 17:20 77 09/30/17 17:13 98.4 77 16 145/79 (101) 97 09/30/17 14:50 77 14 145/88 (107) 99 Room Air 09/30/17 12:30 73 18 163/89 (113) 98 Room Air 09/30/17 10:40 99 Room Air 09/30/17 10:40 68 14 159/83 (108) 99 Room Air 09/30/17 10:00 18 98 Nasal Cannula 4.00 09/30/17 10:00 85 18 98 Nasal Cannula 4.00 09/30/17 09:45 138 28 100 Non-Rebreather 15.00 09/30/17 09:45 138 28 186/98 (127) 100 Non-Rebreather 15.00 09/30/17 09:30 09/30/17 08:45 64 14 173/86 (115) 100 Room Air 09/30/17 08:40 14 09/30/17 07:14 80 18 203/103 (136) 100 Room Air 09/30/17 06:20 99 Room Air 09/30/17 06:20 99 Room Air 09/30/17 06:20 99.5 75 20 191/99 (129) 99 Physical Exam GENERAL: NAD, A&Ox3 HEAD: Normocephalic. NECK: Supple, trachea midline. No lymphadenopathy. EYES: No scleral icterus. No injection or drainage. CARDIOVASCULAR: Regular rate and rhythm without murmurs, gallops, or rubs. RESPIRATORY: Breath sounds equal bilaterally. No accessory muscle use. GASTROINTESTINAL: Abdomen soft, non-tender, nondistended. MUSCULOSKELETAL: No cyanosis, or edema. Mild bruise of forehead SKIN: Warm and dry. NEURO: No focal neurological deficitis. Laboratory Laboratory Tests Test 09/30/17 06:30 09/30/17 08:55 White Blood Count 10.0 Red Blood Count 5.18 Hemoglobin 15.6 Hematocrit 47.5 Mean Corpuscular Volume 91.7 Mean Corpuscular Hemoglobin 30.0 Mean Corpuscular Hemoglobin Concent 32.7 Red Cell Distribution Width 12.9 Platelet Count 142 Mean Platelet Volume 12.6 Neutrophils (%) (Auto) 65.4 Lymphocytes (%) (Auto) 24.2 Monocytes (%) (Auto) 7.2 Eosinophils (%) (Auto) 0.4 Basophils (%) (Auto) 2.8 Neutrophils # (Auto) 6.6 Lymphocytes # (Auto) 2.4 Monocytes # (Auto) 0.7 Eosinophils # (Auto) 0.0 Basophils # (Auto) 0.3 CBC Comment DIFF FINAL Differential Comment Prothrombin Time 11.4 Prothromb Time International Ratio 1.1 Activated Partial Thromboplast Time 21.9 Blood Urea Nitrogen 12 Creatinine 0.81 Random Glucose 98 Total Protein 7.9 Albumin 4.1 Calcium Level 8.7 Magnesium Level 1.8 Alkaline Phosphatase 70 Aspartate Amino Transf (AST/SGOT) 50 Alanine Aminotransferase (ALT/SGPT) 82 Total Bilirubin 0.7 Sodium Level 132 Potassium Level 3.4 Chloride Level 99 Carbon Dioxide Level 22.5 Anion Gap 11 Estimat Glomerular Filtration Rate 75 Total Creatine Kinase 187 Creatine Kinase MB 0.8 Troponin I 0.02 Urine Collection Type CLEAN CATCH Urine Color YELLOW Urine Turbidity CLEAR Urine pH 7.5 Urine Specific [place] LESS/EQUAL 1.005 Urine Protein NEG Urine Glucose (UA) NEG Urine Ketones 40 Urine Occult Blood TRACE Urine Nitrite NEG Urine Bilirubin NEG Urine Urobilinogen 0.2 Urine Leukocyte Esterase NEG Urine RBC 0-3 Urine Squamous Epithelial Cells 0-5 Microscopic Urinalysis Comment CULT NOT INDICATED Urine Opiates Screen NEG Urine Barbiturates Screen NEG Urine Amphetamines Screen NEG Urine Benzodiazepines Screen NEG Urine Cocaine Screen NEG Urine Cannabinoids Screen POS Result Diagram: 09/30/1762909/30/1730 Caprini VTE Risk Assessment Caprini VTE Risk Assessment: No/Low Risk (score <= 1) Caprini Risk Assessment Model Point Value = 1 Point Value = 2 Point Value = 3 Point Value = 5 Age 41-60 Minor surgery BMI > 25 kg/m2 Swollen legs Varicose veins or History of unexplained or recurrent spontaneous Oral contraceptives or hormone replacement Sepsis (< 1 month) Serious lung disease, including pneumonia (< 1 month) Abnormal pulmonary function Acute myocardial infarction Congestive heart failure (< 1 month) History of inflammatory bowel disease Medical patient at bed rest Age 61-74 Arthroscopic surgery Major open surgery (> 45 min) Laparoscopic surgery (> 45 min) Malignancy Confined to bed (> 72 hours) Immobilizing plaster cast Central venous access Age >= 75 History of VTE Family history of VTE Factor V Leiden Prothrombin [id number] Lupus anticoagulant Anticardiolipin antibodies Elevated serum homocysteine Heparin-induced thrombocytopenia Other congenital or acquired thrombophilia Stroke (< 1 month) Elective arthroplasty Hip, pelvis, or leg fracture Acute spinal cord injury (< 1 month) Prophylaxis Regimen Total Risk Factor Score Risk Level Prophylaxis Regimen 0-1 Low Early ambulation 2 Moderate Order ONE of the following: *Sequential Compression Device (SCD) *Heparin 5000 units SQ BID 3-4 Higher Order ONE of the following medications: *Heparin 5000 units SQ TID *Enoxaparin/Lovenox 40 mg SQ daily (WT < 150 kg, CrCl > 30 mL/min) *Enoxaparin/Lovenox 30 mg SQ daily (WT < 150 kg, CrCl > 10-29 mL/min) *Enoxaparin/Lovenox 30 mg SQ BID (WT < 150 kg, CrCl > 30 mL/min) AND/OR *Sequential Compression Device (SCD) 5 or more Highest Order ONE of the following medications: *Heparin 5000 units SQ TID (Preferred with Epidurals) *Enoxaparin/Lovenox 40 mg SQ daily (WT < 150 kg, CrCl > 30 mL/min) *Enoxaparin/Lovenox 30 mg SQ daily (WT < 150 kg, CrCl > 10-29 mL/min) *Enoxaparin/Lovenox 30 mg SQ BID (WT < 150 kg, CrCl > 30 mL/min) AND *Sequential Compression Device (SCD) Assessment and Plan Problem List: (1) Seizure ICD Code: R56.9 - Unspecified convulsions (2) Closed petechial hemorrhage of brain ICD Code: S06.309A - Unspecified focal traumatic brain injury with loss of consciousness of unspecified duration, initial encounter (3) Intractable abdominal pain ICD Code: R10.9 - Unspecified abdominal pain Status: Acute (4) Nausea & vomiting ICD Code: R11.2 - Nausea with vomiting, unspecified Status: Acute (5) Abdominal pain ICD Code: R10.9 - Unspecified abdominal pain Status: Acute Assessment and Plan 47-year-old female admitted secondary to a syncopal episode related to urinary tract infection and hyperemesis Seizure Neurology consult Follow for recurrence Neurochecks Seizure percautions PRN Ativan EEG Petechial hemorrhage of brain May be related to head trauma three days ago follow for stability transfer to [facility] for monitoring Avoid blood thinners Gastroenteritis Hyperemesis Hyponatremia Hypokalemia Improved IV hydration overnight PRN antiemetics Depression Gen. anxiety disorder Continue baseline treatments Cardiovascular disease Gastroesophageal reflux disease History of gastric ulcer History of pancreatitis History of sphincter of the dysfunction Old myocardial infarction No exacerbations of these conditions Follow clinically DVT prophylaxis SCDs given brain hemorrhages Physician Certification 2 Midnight Certification Type: Admission for Inpatient Services Order for Inpatient Services The services are ordered in accordance with Medicare regulations or non- Medicare payer requirements, as applicable. In the case of services not specified as inpatient-only, they are appropriately provided as inpatient services in accordance with the 2-midnight benchmark. Estimated LOS (days): 3 days is the estimated time the patient will need to remain in the hospital, assuming treatment plan goals are met and no additional complications. Post-Hospital Plan: Home Problem Qualifiers (1) Nausea & vomiting: Qualified Codes: R11.2 - Nausea with vomiting, unspecified (2) Abdominal pain: Qualified Codes: R10.13 - Epigastric pain Jerry Ardon MD Sep 30, 2017 21:09
[2017-09-30] MEDS ORDERED: LORazepam 2 MG/ML VIAL IV PUSH PRN (21:15)
[2017-10-01] VITALS (21 sets, daily range): BP systolic 132–156; BP diastolic 65–80; PULSE 54–95; RESP 14–16; TEMP 97.7–98.9; O2SAT 95–97
[2017-10-01] MEDS: MORPHINE SULFATE 2 MG/ML INJ IV PUSH PRN ×7 (00:54→20:13)
[2017-10-01] MEDS: SODIUM CHLOR 0.9% 1000 ML INJ 1,000 ML IV SCH (07:26)
[2017-10-01 07:29] LABS: AUTOMATED NEUTROPHIL # 3.8 TH/MM3 (1.8-7.7); BASOPHIL # 0.1 TH/MM3 (0-0.2); BASOPHIL % 0.8 % (0.0-2.0); EOSINOPHIL # 0.2 TH/MM3 (0-0.4); EOSINOPHIL % 2.1 % (0.0-4.0); HEMOGLOBIN 14.2 GM/DL (11.6-15.3); LYMPH % 44.3 % (9.0-44.0); LYMPHOCYTE # 3.8 TH/MM3 (1.0-4.8); MEAN CELL VOLUME 91.8 FL (80.0-100.0); MEAN CORPUSCULAR HGB CONC 33.7 % (32.0-36.0); MEAN PLATELET VOLUME 12.3 FL (7.0-11.0); MONO % 9.3 % (0.0-8.0); MONOCYTE # 0.8 TH/MM3 (0-0.9); NEUT % 43.5 % (16.0-70.0); PLATELET COUNT 124 TH/MM3 (150-450); RED BLOOD COUNT 4.57 MIL/MM3 (4.00-5.30); RED CELL DISTRIBUTION WIDTH 13.4 % (11.6-17.2); WHITE BLOOD COUNT 8.7 TH/MM3 (4.0-11.0)
[2017-10-01] MEDS: CITALOPRAM HYDROBROMIDE 40 MG TAB PO SCH (08:59)
[2017-10-01] MEDS: SODIUM CHLORIDE 0.9% FLUSH 10 ML FLUSH IV FLUSH SCH ×2 (09:00→20:12)
[2017-10-01] MEDS ORDERED: LORazepam 1 MG TAB PO ONE (09:45)
--- NOTE | 2017-10-01 09:47 | HHI.PR ---
Subjective Remarks Seizure. Improving headache scale of 7 out of 10. Denies dizziness, numbness and focal weakness. Discussed with RN, requesting Ativan prior to MRA. Objective Vitals Vital Signs Date Time Temp Pulse Resp B/P (MAP) Pulse Ox O2 Delivery O2 Flow Rate FiO2 10/01/17 08:09 98.6 64 16 136/76 (96) 97 10/01/17 07:00 63 10/01/17 03:00 97.7 95 14 156/67 (96) 97 10/01/17 03:00 55 10/01/17 00:59 14 09/30/17 23:00 61 09/30/17 23:00 98.5 61 14 151/70 (97) 97 09/30/17 21:12 14 09/30/17 19:00 98.8 69 14 144/69 (94) 96 09/30/17 19:00 69 09/30/17 18:11 65 09/30/17 17:20 77 09/30/17 17:13 98.4 77 16 145/79 (101) 97 09/30/17 14:50 77 14 145/88 (107) 99 Room Air 09/30/17 12:30 73 18 163/89 (113) 98 Room Air 09/30/17 10:40 99 Room Air 09/30/17 10:40 68 14 159/83 (108) 99 Room Air 09/30/17 10:00 18 98 Nasal Cannula 4.00 09/30/17 10:00 85 18 98 Nasal Cannula 4.00 I/O 09/30/17 09/30/17 09/30/17 10/01/17 10/01/17 10/01/17 07:00 15:00 23:00 07:00 15:00 23:00 Intake Total 1175 ml 691 ml Balance 1175 ml 691 ml Intake Oral 240 ml IV Total 1175 ml 451 ml # Voids 4 # Bowel Movements 0 Result Diagram: 10/01/17 0615 09/30/17 0630 Imaging Last Impressions Head CT 09/30/17 0000 Signed Impressions: Service Date/Time: Saturday, September 30, 2017 10:16 - CONCLUSION: 1. Possible focal gyriform increased attenuation in both frontal lobes. Cannot exclude underlying pathology, possibly petechial hemorrhage. Recommend further evaluation with MRI. Dominic Sow MD Chest X-Ray 09/30/17 0000 Signed Impressions: Service Date/Time: Saturday, September 30, 2017 07:17 - CONCLUSION: 1. No acute cardiopulmonary disease. Sohan Bojorquez MD Brain MRI 09/30/17 0000 Signed Impressions: Service Date/Time: Saturday, September 30, 2017 14:20 - CONCLUSION: 1. Multifocal parenchymal and white matter abnormalities, relatively symmetric predominantly on the flair and T2-weighted images. Findings are nonspecific but the differential diagnosis includes hypertensive encephalopathy, encephalitis and progressive multifocal leukoencephalopathy. Dominic Sow MD Abdomen/Pelvis CT 09/30/17 0000 Signed Impressions: Service Date/Time: Saturday, September 30, 2017 08:05 - CONCLUSION: 1. Mild enlarged fatty liver. 2. Degenerative changes and scoliosis of the lumbar spine. Alex King MD Objective Remarks GENERAL: Well-developed and well-nourished in no distress SKIN: Warm and dry. EYES: Pupils equal and round. No scleral icterus. No injection or drainage. CARDIOVASCULAR: Regular rate and rhythm. RESPIRATORY: No accessory muscle use. Clear to auscultation. Breath sounds equal bilaterally. GASTROINTESTINAL: Abdomen soft, non-tender, nondistended. MUSCULOSKELETAL: Extremities without clubbing, cyanosis, or edema. No obvious deformities. NEUROLOGICAL: Awake and alert. No obvious cranial nerve deficits. Motor grossly within normal limits. Five out of 5 muscle strength in the arms and legs. Normal speech. PSYCHIATRIC: Appropriate mood and affect; insight and judgment normal. Procedures none A/P Problem List: (1) Seizure ICD Code: R56.9 - Unspecified convulsions (2) Closed petechial hemorrhage of brain ICD Code: S06.309A - Unspecified focal traumatic brain injury with loss of consciousness of unspecified duration, initial encounter (3) Intractable abdominal pain ICD Code: R10.9 - Unspecified abdominal pain Status: Acute (4) Nausea & vomiting ICD Code: R11.2 - Nausea with vomiting, unspecified Status: Acute (5) Abdominal pain ICD Code: R10.9 - Unspecified abdominal pain Status: Acute Assessment and Plan 47-year-old female admitted secondary to a syncopal episode related to urinary tract infection and hyperemesis Seizure. Stable Neurology consult Follow for recurrence Neurochecks Seizure precautions. Patient aware she is not allowed to drive for 6 months, climb heights, swimming alone and carry young children. PRN Ativan EEG pending Petechial hemorrhage of brain May be related to head trauma three days ago follow for stability Avoid blood thinners MRI shows multifocal parenchymal and white matter abnormalities relatively symmetric predominantly on the FLAIR and T2 weighted images. Nonspecific findings. Await neurology consult Gastroenteritis Hyperemesis Hyponatremia Hypokalemia Improved IV hydration overnight PRN antiemetics Depression Gen. anxiety disorder Continue baseline treatments Cardiovascular disease Gastroesophageal reflux disease History of gastric ulcer History of pancreatitis History of sphincter of the dysfunction Old myocardial infarction No exacerbations of these conditions Follow clinically DVT prophylaxis SCDs no chemical prophylaxis given brain hemorrhages Discharge Planning Discharge per neurology Problem Qualifiers (1) Nausea & vomiting: Qualified Codes: R11.2 - Nausea with vomiting, unspecified (2) Abdominal pain: Qualified Codes: R10.13 - Epigastric pain Tutu Matos MD Oct 01, 2017 09:47
[2017-10-01] MEDS: NS + KCL 20 MEQ INJ 1,000 ML IV SCH ×2 (09:54→18:07)
--- NOTE | 2017-10-01 11:10 | RADRPT ---
EXAM DATE/TIME: 10/01/2017 10:13 [place] COMPARISON: MRI BRAIN W & W/O CONTRAST, September 30, 2017, 14:20. INDICATIONS : Seizures. Syncopal episodes MEDICAL HISTORY : None. SURGICAL HISTORY : Cholecystectomy. Fusion, cervical. ENCOUNTER: Initial ACUITY: 2 day PAIN SCORE: 0/10 LOCATION: cranial Please note a normal MRA of the brain does not entirely exclude the possibility of a small aneurysm, nor the possibility of distal intracranial vessel disease. TECHNIQUE: 3D time of flight MRA was performed. Source images, multiplanar STS MIP, and 3D volume MIP reconstru ctions were reviewed. FINDINGS: There is excellent visualization of the major intracranial arteries out to the second-order branch ve ssels. There is no evidence for aneurysm, vessel truncation or stenosis, and no evidence for vascula r malformation. CONCLUSION: Normal examination. Adelita Glover MD on October 01, 2017 at 11:05 Board Certified Radiologist. This report was verified electronically.
--- NOTE | 2017-10-01 13:08 | PD.CONS ---
History of Present Illness Service Neurology Consult Requested By er Reason for Consult sz, abnormal imaging Primary Care Physician El Jackson MD History of Present Illness 47 year old female tx'd from [facility] for abnormal imaging findings and seizure activity. bp >200/100. she states she normally runs a low bp. admits to alot of stress recently. recently found out she is getting . has not been eating or sleeping well. bp now improved. feels better. no focal weakness, no vision loss. axel po. no hx of sz. 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 no family hx of sz. not on immunosuppressants. Review of Systems as above and admit hp Past Family Social History Past Medical History Depression gulshan gi symptoms/enteritis Past Surgical History Cardiac catheterization Titanium plate and screws and neck Common bile duct stents Cervical fusion Allergies: Coded Allergies: codeine (Unverified Adverse Reaction, Severe, Nausea/Vomiting, 09/30/17) Family History Hypertension Social History smokes one half pack per day No alcohol abuse No illicit drug abuse Review of Systems All other ROS: ROS reviewed as documented in chart Past Family Social History Allergies: Coded Allergies: codeine (Unverified Adverse Reaction, Severe, Nausea/Vomiting, 09/30/17) Active Ordered Medications Current Medications Medications (Trade) Dose Ordered Sig/Monica Route Start Time Stop Time Status Last Admin (NS Flush) 2 ml UNSCH PRN IV FLUSH 09/30/17 11:30 (NS Flush) 2 ml BID IV FLUSH 09/30/17 21:00 10/01/17 09:00 (Zofran Inj) 4 mg Q6H PRN IVP 09/30/17 11:30 (Morphine Inj) 2 mg Q3H PRN IV PUSH 09/30/17 11:30 10/01/17 09:55 (Morphine Inj) 4 mg Q3H PRN IV PUSH 09/30/17 11:30 10/01/17 09:55 (Narcan Inj) 0.4 mg UNSCH PRN IV PUSH 09/30/17 11:30 (Milk Of Magnesia Liq) 30 ml Q12H PRN PO 09/30/17 11:30 (Levsin Liq) 0.125 mg Q6H PRN PO 09/30/17 18:15 (CeleXA) 40 mg DAILY PO 10/01/17 09:00 10/01/17 08:59 (Ativan Inj) 2 mg UNSCH PRN IV PUSH 09/30/17 21:15 Potassium Chloride/Sodium Chloride 1,000 ml @ 100 mls/hr Q10H IV 10/01/17 09:00 10/01/17 09:54 (Protonix) 20 mg DAILY PO 10/02/17 09:00 Exam I&O / VS Vital Signs Date Time Temp Pulse Resp B/P (MAP) Pulse Ox O2 Delivery O2 Flow Rate FiO2 10/01/17 12:03 55 10/01/17 11:02 98.0 55 16 139/65 (89) 95 10/01/17 11:00 54 10/01/17 10:00 64 10/01/17 09:00 64 10/01/17 08:09 98.6 64 16 136/76 (96) 97 10/01/17 08:00 54 10/01/17 07:00 63 10/01/17 03:00 97.7 95 14 156/67 (96) 97 10/01/17 03:00 55 10/01/17 00:59 14 09/30/17 23:00 61 09/30/17 23:00 98.5 61 14 151/70 (97) 97 09/30/17 21:12 14 09/30/17 19:00 98.8 69 14 144/69 (94) 96 09/30/17 19:00 69 09/30/17 18:11 65 09/30/17 17:20 77 09/30/17 17:13 98.4 77 16 145/79 (101) 97 09/30/17 14:50 77 14 145/88 (107) 99 Room Air General: Alert and Oriented, No acute distress Eye: EOMI Respiratory: Non-labored respirations Cardiology: Normal rate Musculoskeletal: ROM Neurologic: Alert, Oriented, Normal sensory, Normal motor, No focal defects, CN II-XII intact, Normal DTR's Psychiatric: Cooperative, Appropriate mood & affect, Normal judgement Review/Management Diagnosis/Plan: (1) Leukoencephalopathy ICD Codes: G93.49 - Other encephalopathy Status: Acute Plan: probable PRES seen on imaging 2/2 acute htn with sz images reviewed with pt mra brain nml looks well now. no fever, bp in range. no leukocytosis. neuro intact recs keppra 500mg bid/ s/b d wpt eeg repeat mri brain in 4-6 weeks outpatient f/u with me in 1-2 weeks p.t. no driving/climbing heights (2) Hypertensive urgency ICD Codes: I16.0 - Hypertensive urgency Status: Acute Plan: improved (3) Anxiety ICD Codes: F41.9 - Anxiety disorder, unspecified Status: Chronic (4) Depression ICD Codes: F32.9 - Major depressive disorder, single episode, unspecified Status: Chronic Abelardo Petersen MD Oct 01, 2017 13:07
[2017-10-01 14:47] LABS: ALBUMIN 3.2 GM/DL (3.4-5.0); ALT (GPT) 39 U/L (10-53); AST (GOT) 8 U/L (15-37); BICARBONATE 28.1 MEQ/L (21.0-32.0); BLOOD UREA NITROGEN 6 MG/DL (7-18); CALCIUM 7.8 MG/DL (8.5-10.1); CHLORIDE 106 MEQ/L (98-107); CREATININE 0.74 MG/DL (0.50-1.00); GLOMERULAR FILTRATION RATE 83 ML/MIN (>89); GLUCOSE,RANDOM 130 MG/DL (74-106); SODIUM (NA) 141 MEQ/L (136-145)
[2017-10-01 14:50] LABS: ALKALINE PHOSPHATASE 57 U/L (45-117); TOTAL BILIRUBIN ADULT 0.3 MG/DL (0.2-1.0); TOTAL PROTEIN 6.2 GM/DL (6.4-8.2)
[2017-10-01] MEDS: levETIRAcetam 500 MG TAB PO SCH ×2 (15:15→20:12)
--- NOTE | 2017-10-01 18:31 | EKG ---
Date Performed: 09/30/2017 Time Performed: 10:37:10 PTAGE: 47 years EKG: Sinus rhythm POSSIBLE LEFT ATRIAL ENLARGEMENT POSSIBLE RIGHT VENTRICULAR CONDUCTION DELAY POSSIBLE LATERAL MYOCAR DIAL INFARCTION BORDERLINE ECG Compared to PREVIOUS TRACING , the patient continues to have some anterolateral Q waves of undetermin ed significance, lateral myocardial infarction cannot be excluded. PREVIOUS TRACIN09/30/2017 06.17 DOCTOR: Ryan Bangura Interpretating Date/Time 10/01/2017 18:29:03
[2017-10-01] MEDS ORDERED: POTASSIUM CHLORIDE 10 MEQ CONTROLLED RELEASE TAB PO ONE (20:15)
--- NOTE | 2017-10-01 21:16 | MG ---
cc: Abelardo Petersen MD EEG RECORD #[id number] A 47-year-old, seizures, mental status changes. 8-9 Hz posterior rhythm, 20-50 microvolts, good anterior to posterior gradient. Slight increased beta frequencies. Slow eye movements noted. Good driving with photic stimulation. Single lead EKG showing sinus rhythm. INTERPRETATION: Normal awake electroencephalogram with slight increase in fast frequencies. Clinical correlation. Abelardo Petersen MD MG/rt , 08:58 PM , 09:13 PM
[2017-10-02] VITALS (15 sets, daily range): BP systolic 151–155; BP diastolic 67–86; PULSE 52–75; RESP 16; TEMP 98.3–98.9; O2SAT 97–99
[2017-10-02] MEDS: MORPHINE SULFATE 2 MG/ML INJ IV PUSH PRN ×2 (04:25→09:13)
[2017-10-02] MEDS: NS + KCL 20 MEQ INJ 1,000 ML IV SCH (08:04)
[2017-10-02] MEDS: levETIRAcetam 500 MG TAB PO SCH (08:40)
[2017-10-02] MEDS: SODIUM CHLORIDE 0.9% FLUSH 10 ML FLUSH IV FLUSH SCH (08:40)
[2017-10-02] MEDS: CITALOPRAM HYDROBROMIDE 40 MG TAB PO SCH (08:40)
[2017-10-02] MEDS ORDERED: PANTOPRAZOLE SOD 20 MG DELAYED RELEASE TAB PO SCH (09:00)
--- NOTE | 2017-10-02 09:38 | HHI.PR ---
Subjective Remarks Follow-up seizure. Patient did well overnight complains of frontal headache. History of low blood pressure. Discussed with RN, patient stable for discharge pending BMP Objective Vitals Vital Signs Date Time Temp Pulse Resp B/P (MAP) Pulse Ox O2 Delivery O2 Flow Rate FiO2 10/02/17 07:55 98.4 65 16 153/86 (108) 99 10/02/17 07:00 58 10/02/17 06:00 58 10/02/17 05:00 54 10/02/17 04:00 58 10/02/17 03:00 62 10/02/17 03:00 98.3 64 16 151/79 (103) 98 10/02/17 02:34 58 10/02/17 01:00 58 10/02/17 00:00 52 10/01/17 23:00 64 10/01/17 23:00 98.3 63 16 155/80 (105) 96 10/01/17 22:00 62 10/01/17 21:00 60 10/01/17 20:00 64 10/01/17 19:00 98.9 65 16 145/68 (93) 97 10/01/17 19:00 75 10/01/17 18:06 59 10/01/17 17:20 64 10/01/17 16:00 86 10/01/17 15:06 98.6 61 16 132/79 (96) 96 10/01/17 15:00 70 10/01/17 14:00 68 10/01/17 13:00 66 10/01/17 12:03 55 10/01/17 11:02 98.0 55 16 139/65 (89) 95 10/01/17 11:00 54 10/01/17 10:00 64 I/O 10/01/17 10/01/17 10/01/17 10/02/17 10/02/17 10/02/17 07:00 15:00 23:00 07:00 15:00 23:00 Intake Total 691 ml 1585 ml 1612 ml Balance 691 ml 1585 ml 1612 ml Intake Oral 240 ml 1585 ml 300 ml IV Total 451 ml 1312 ml # Voids 4 4 4 # Bowel Movements 0 Result Diagram: 10/01/17 0615 10/01/17 1404 Imaging Last Impressions Head Magnetic Resonance Angiography 10/01/17 0000 Signed Impressions: Service Date/Time: Sunday, October 01, 2017 10:13 - CONCLUSION: Normal examination. Adelita Glover MD Head CT 09/30/17 0000 Signed Impressions: Service Date/Time: Saturday, September 30, 2017 10:16 - CONCLUSION: 1. Possible focal gyriform increased attenuation in both frontal lobes. Cannot exclude underlying pathology, possibly petechial hemorrhage. Recommend further evaluation with MRI. Dominic Sow MD Chest X-Ray 09/30/17 0000 Signed Impressions: Service Date/Time: Saturday, September 30, 2017 07:17 - CONCLUSION: 1. No acute cardiopulmonary disease. Sohan Bojorquez MD Brain MRI 09/30/17 0000 Signed Impressions: Service Date/Time: Saturday, September 30, 2017 14:20 - CONCLUSION: 1. Multifocal parenchymal and white matter abnormalities, relatively symmetric predominantly on the flair and T2-weighted images. Findings are nonspecific but the differential diagnosis includes hypertensive encephalopathy, encephalitis and progressive multifocal leukoencephalopathy. Dominic Sow MD Abdomen/Pelvis CT 09/30/17 0000 Signed Impressions: Service Date/Time: Saturday, September 30, 2017 08:05 - CONCLUSION: 1. Mild enlarged fatty liver. 2. Degenerative changes and scoliosis of the lumbar spine. Alex King MD Objective Remarks GENERAL: Well-developed and well-nourished in no distress SKIN: Warm and dry. EYES: Pupils equal and round. No scleral icterus. No injection or drainage. CARDIOVASCULAR: Regular rate and rhythm. RESPIRATORY: No accessory muscle use. Clear to auscultation. Breath sounds equal bilaterally. GASTROINTESTINAL: Abdomen soft, non-tender, nondistended. MUSCULOSKELETAL: Extremities without clubbing, cyanosis, or edema. No obvious deformities. NEUROLOGICAL: Awake and alert. No obvious cranial nerve deficits. Motor grossly within normal limits. Five out of 5 muscle strength in the arms and legs. Normal speech. PSYCHIATRIC: Appropriate mood and affect; insight and judgment normal. Procedures none A/P Problem List: (1) Seizure ICD Code: R56.9 - Unspecified convulsions (2) Closed petechial hemorrhage of brain ICD Code: S06.309A - Unspecified focal traumatic brain injury with loss of consciousness of unspecified duration, initial encounter (3) Intractable abdominal pain ICD Code: R10.9 - Unspecified abdominal pain Status: Acute (4) Nausea & vomiting ICD Code: R11.2 - Nausea with vomiting, unspecified Status: Acute (5) Abdominal pain ICD Code: R10.9 - Unspecified abdominal pain Status: Acute Assessment and Plan 47-year-old female admitted secondary to a syncopal episode related to urinary tract infection and hyperemesis Seizure. Stable Neurology impression is PRES 2/2 BP elevation and sz. Rpt MRI in 4-6 mos Neurochecks Seizure precautions. Patient aware she is not allowed to drive for 6 months, climb heights, swimming alone and carry young children. PRN Ativan. Continue Keppra Fioricet for headache Petechial hemorrhage of brain May be related to head trauma three days ago follow for stability Avoid blood thinners MRI shows multifocal parenchymal and white matter abnormalities relatively symmetric predominantly on the FLAIR and T2 weighted images. Nonspecific findings. See above Gastroenteritis Hyperemesis Hyponatremia Hypokalemia Improved IV hydration overnight PRN antiemetics Depression Gen. anxiety disorder Continue baseline treatments Cardiovascular disease Gastroesophageal reflux disease Transaminitis with fatty liver on imaging study. Improving History of gastric ulcer History of pancreatitis History of sphincter of the dysfunction Old myocardial infarction No exacerbations of these conditions Follow clinically DVT prophylaxis SCDs no chemical prophylaxis given brain hemorrhages Discharge Planning Stable for discharge pending BMP Problem Qualifiers (1) Nausea & vomiting: Qualified Codes: R11.2 - Nausea with vomiting, unspecified (2) Abdominal pain: Qualified Codes: R10.13 - Epigastric pain Tutu Matos MD Oct 02, 2017 09:38
[2017-10-02] MEDS ORDERED: ACETAMIN 325 MG/BUTALBITAL 50 MG/CAFFEINE 40 MG TAB PO PRN (09:45)
[2017-10-02] MEDS ORDERED: LEVE500 PO (09:47)
[2017-10-02] MEDS ORDERED: Acet-Butal-Caff 325-50-40 Mg PO (09:47)
--- NOTE | 2017-10-02 09:48 | HHI.DCPOC ---
Discharge Care Plan Diagnosis: (1) Seizure Your Health Problems Are: Difficulty with ADL Exercise Tolerance Goals to Promote Your Health * To prevent worsening of your condition and complications * To maintain your health at the optimal level Directions to Meet Your Goals Take your medications as prescribed Follow your dietary instruction Follow activity as directed Keep your appointments as scheduled Take your immunizations and boosters as scheduled If your symptoms worsen call your PCP, if no PCP go to Urgent Care Center or Emergency Room Smoking is Dangerous to Your Health. Avoid second hand smoke Call the 24-hour hour crisis hotline for domestic abuse at Tutu Matos MD Oct 02, 2017 09:48
--- NOTE | 2017-10-02 12:04 | HHI.DS ---
Discharge Summary Admission Date Sep 30, 2017 at 11:26 Discharge Date: Oct 02, 2017 Admitting Diagnosis seizure, abnormal CT (1) Seizure ICD Code: R56.9 - Unspecified convulsions Diagnosis: Principal (2) Intractable abdominal pain ICD Code: R10.9 - Unspecified abdominal pain Diagnosis: Principal Status: Acute (3) Nausea & vomiting ICD Code: R11.2 - Nausea with vomiting, unspecified Diagnosis: Principal Status: Acute (4) Abdominal pain ICD Code: R10.9 - Unspecified abdominal pain Diagnosis: Principal Status: Acute Procedures none Brief History - From Admission Mrs. Vargas is a 47 year old female. She was admitted at [facility] recently for gastroenteritis and syncopal vs. seizure (LOC). She has no prior seizure disorder history. She had vomited recurrently and ended up loosing consciousness and striking her forehead on the floor at that time. CT had been negative at that time. Gastroenteritis symptoms resolved and she had a negative syncopal work up. No seizure activity witnessed then. She came back to the ER due to recurrence of her GI symptoms. GI symptoms resolved with antiemetics in the ER and she was discharged, but subsequently had a witnessed seizure in the waiting room. Repeat brain imaging was performed and shows petechial hemorrhages in the frontal lobes, which is new compared to three days prior. When seen in the ER, she is alert/oriented, but feels weak/fatigued. No other complaints. CBC/BMP: 10/01/17 0615 10/01/17 1404 Significant Findings Laboratory Tests Test 09/30/17 06:30 09/30/17 08:55 10/01/17 06:15 10/01/17 14:04 Hemoglobin 15.6 GM/DL (11.6-15.3) Hematocrit 47.5 % (35.0-46.0) Platelet Count 142 TH/MM3 (150-450) 124 TH/MM3 (150-450) Mean Platelet Volume 12.6 FL (7.0-11.0) 12.3 FL (7.0-11.0) Basophils (%) (Auto) 2.8 % (0.0-2.0) Basophils # (Auto) 0.3 TH/MM3 (0-0.2) Activated Partial Thromboplast Time 21.9 SEC (24.3-30.1) Aspartate Amino Transf (AST/SGOT) 50 U/L (15-37) 8 U/L (15-37) Alanine Aminotransferase (ALT/SGPT) 82 U/L (10-53) Sodium Level 132 MEQ/L (136-145) Potassium Level 3.4 MEQ/L (3.5-5.1) 3.0 MEQ/L (3.5-5.1) Estimat Glomerular Filtration Rate 75 ML/MIN (>89) 83 ML/MIN (>89) Urine Ketones 40 mg/dL (NEG) Urine Cannabinoids Screen POS (NEG) Lymphocytes (%) (Auto) 44.3 % (9.0-44.0) Monocytes (%) (Auto) 9.3 % (0.0-8.0) Blood Urea Nitrogen 6 MG/DL (7-18) Random Glucose 130 MG/DL (74-106) Total Protein 6.2 GM/DL (6.4-8.2) Albumin 3.2 GM/DL (3.4-5.0) Calcium Level 7.8 MG/DL (8.5-10.1) Test 10/02/17 11:05 Imaging Last Impressions Head Magnetic Resonance Angiography 10/01/17 0000 Signed Impressions: Service Date/Time: Sunday, October 01, 2017 10:13 - CONCLUSION: Normal examination. Adelita Glover MD Head CT 09/30/17 0000 Signed Impressions: Service Date/Time: Saturday, September 30, 2017 10:16 - CONCLUSION: 1. Possible focal gyriform increased attenuation in both frontal lobes. Cannot exclude underlying pathology, possibly petechial hemorrhage. Recommend further evaluation with MRI. Dominic Sow MD Chest X-Ray 09/30/17 0000 Signed Impressions: Service Date/Time: Saturday, September 30, 2017 07:17 - CONCLUSION: 1. No acute cardiopulmonary disease. Sohan Bojorquez MD Brain MRI 09/30/17 0000 Signed Impressions: Service Date/Time: Saturday, September 30, 2017 14:20 - CONCLUSION: 1. Multifocal parenchymal and white matter abnormalities, relatively symmetric predominantly on the flair and T2-weighted images. Findings are nonspecific but the differential diagnosis includes hypertensive encephalopathy, encephalitis and progressive multifocal leukoencephalopathy. Dominic Sow MD Abdomen/Pelvis CT 09/30/17 0000 Signed Impressions: Service Date/Time: Saturday, September 30, 2017 08:05 - CONCLUSION: 1. Mild enlarged fatty liver. 2. Degenerative changes and scoliosis of the lumbar spine. Alex King MD PE at Discharge GENERAL: Well-developed and well-nourished in no distress SKIN: Warm and dry. EYES: Pupils equal and round. No scleral icterus. No injection or drainage. CARDIOVASCULAR: Regular rate and rhythm. RESPIRATORY: No accessory muscle use. Clear to auscultation. Breath sounds equal bilaterally. GASTROINTESTINAL: Abdomen soft, non-tender, nondistended. MUSCULOSKELETAL: Extremities without clubbing, cyanosis, or edema. No obvious deformities. NEUROLOGICAL: Awake and alert. No obvious cranial nerve deficits. Motor grossly within normal limits. Five out of 5 muscle strength in the arms and legs. Normal speech. PSYCHIATRIC: Appropriate mood and affect; insight and judgment normal. Hospital Course 47-year-old female admitted secondary to a syncopal episode related to urinary tract infection and hyperemesis Seizure. Stable Neurology impression is PRES 2/2 BP elevation and sz. Rpt MRI in 4-6 mos Neurochecks Seizure precautions. Patient aware she is not allowed to drive for 6 months, climb heights, swimming alone and carry young children. PRN Ativan. Continue Keppra Fioricet for headache Petechial hemorrhage of brain May be related to head trauma three days ago follow for stability Avoid blood thinners MRI shows multifocal parenchymal and white matter abnormalities relatively symmetric predominantly on the FLAIR and T2 weighted images. Nonspecific findings. See above Gastroenteritis Hyperemesis Hyponatremia Hypokalemia Improved IV hydration overnight PRN antiemetics Depression Gen. anxiety disorder Continue baseline treatments Cardiovascular disease Gastroesophageal reflux disease Transaminitis with fatty liver on imaging study. Improving History of gastric ulcer History of pancreatitis History of sphincter of the dysfunction Old myocardial infarction No exacerbations of these conditions Follow clinically DVT prophylaxis SCDs no chemical prophylaxis given brain hemorrhages Pt Condition on Discharge: Stable Discharge Disposition: Discharge Home Discharge Time: > 30 minutes Discharge Instructions DIET: Follow Instructions for: As Tolerated, No Restrictions Activities you can perform: Regular-No Restrictions Activities to Avoid: Driving Other Activity Instructions: no swimming alone, climbing hts and carrying young children Follow up Referrals: Neurology - 1 Week PCP Follow-up - 1 Week New Orders: MRI Brain W & W/O Contrast - 6 Months New Medications: Levetiracetam (Keppra) 500 Mg Tab 500 MG PO Q12HR for Control Seizures, #60 TAB [Udtr-Rwvce-Qtoh 325-50-40 Mg] () 1 TAB TAB 1 TAB PO Q6H PRN for HEADACHE, #28 TAB Continued Medications: Citalopram (Celexa) 40 Mg Tab 40 MG PO DAILY for Control Depression, #30 TAB 0 Refills Hyoscyamine (Levsin) 0.125 Mg Tab 0.125 MG PO Q6H for Gastrointestinal disorders, TAB 0 Refills Omeprazole Magnesium (Prilosec) 20 Mg Tab Ondansetron Odt (Zofran Odt) 4 Mg Tab 4 MG SL Q12HR PRN for Nausea/Vomiting, #30 TAB 0 Refills Tutu Matos MD Oct 02, 2017 12:04
[2017-10-02 12:08] LABS: CALCIUM 8.3 MG/DL (8.5-10.1); CREATININE 0.66 MG/DL (0.50-1.00); MAGNESIUM 1.9 MG/DL (1.5-2.5)
[2017-10-02 12:09] LABS: BICARBONATE 26.1 MEQ/L (21.0-32.0)
--- NOTE | 2017-10-02 13:13 | HHI.PR ---
Review/Management Diagnosis/Plan: (1) Leukoencephalopathy ICD Codes: G93.49 - Other encephalopathy Status: Acute Plan: probable PRES seen on imaging 2/2 acute htn with sz images reviewed with pt mra brain nml looks well now. no fever, bp in range. no leukocytosis. neuro intact recs doing well stress reduction keppra 500mg bid/ s/b d wpt eeg- no sz repeat mri brain in 4-6 weeks outpatient f/u with me in 1-2 weeks p.t. no driving/climbing heights (2) Hypertensive urgency ICD Codes: I16.0 - Hypertensive urgency Status: Acute Plan: improved (3) Anxiety ICD Codes: F41.9 - Anxiety disorder, unspecified Status: Chronic (4) Depression ICD Codes: F32.9 - Major depressive disorder, single episode, unspecified Status: Chronic Subjective Subjective Comments No acute events reported No headache No chest pain No dyspnea no sz pt seen before being dc'd Allergies Allergies Coded Allergies codeine (Unverified Adverse Reaction, Severe, Nausea/Vomiting, 09/30/17) Review of Systems All other ROS: ROS reviewed as documented in chart Exam I&O / VS 10/02/17 10/02/17 10/03/17 15:00 23:00 07:00 Intake Total 1612 ml Balance 1612 ml Intake Oral 300 ml IV Total 1312 ml # Voids 4 Vital Signs Date Time Temp Pulse Resp B/P (MAP) Pulse Ox O2 Delivery O2 Flow Rate FiO2 10/02/17 12:00 64 10/02/17 11:22 98.9 70 16 155/67 (96) 97 10/02/17 11:00 75 10/02/17 10:00 58 10/02/17 09:00 62 10/02/17 08:00 68 10/02/17 07:55 98.4 65 16 153/86 (108) 99 10/02/17 07:00 58 10/02/17 06:00 58 10/02/17 05:00 54 10/02/17 04:00 58 10/02/17 03:00 62 10/02/17 03:00 98.3 64 16 151/79 (103) 98 10/02/17 02:34 58 10/02/17 01:00 58 10/02/17 00:00 52 10/01/17 23:00 64 10/01/17 23:00 98.3 63 16 155/80 (105) 96 10/01/17 22:00 62 10/01/17 21:00 60 10/01/17 20:00 64 10/01/17 19:00 98.9 65 16 145/68 (93) 97 10/01/17 19:00 75 10/01/17 18:06 59 10/01/17 17:20 64 10/01/17 16:00 86 10/01/17 15:06 98.6 61 16 132/79 (96) 96 10/01/17 15:00 70 10/01/17 14:00 68 General: Alert and Oriented, No acute distress Eye: EOMI Respiratory: Non-labored respirations Cardiology: Normal rate Musculoskeletal: ROM Neurologic: Alert, Oriented, Normal sensory, Normal motor, No focal defects, CN II-XII intact, Normal DTR's Psychiatric: Cooperative, Appropriate mood & affect, Normal judgement Objective Micro and Labs Laboratory Tests Test 10/01/17 14:04 10/02/17 11:05 Blood Urea Nitrogen 6 5 Creatinine 0.74 0.66 Random Glucose 130 107 Total Protein 6.2 Albumin 3.2 Calcium Level 7.8 8.3 Alkaline Phosphatase 57 Aspartate Amino Transf (AST/SGOT) 8 Alanine Aminotransferase (ALT/SGPT) 39 Total Bilirubin 0.3 Sodium Level 141 140 Potassium Level 3.0 4.5 Chloride Level 106 107 Carbon Dioxide Level 28.1 26.1 Anion Gap 7 7 Estimat Glomerular Filtration Rate 83 95 Total Creatine Kinase 86 Magnesium Level 1.9 Abelardo Petersen MD Oct 02, 2017 13:13
== END 2017-10-02 12:45 | disposition home or self-care (01) | DRG 70 ==
LOC: PHED 06:10 → PHEDA 11:26 → HCPC 16:55
PROVIDERS: ADMIT Internal Medicine; ATTEND Internal Medicine
DX: I67.83 Posterior reversible encephalopathy syndrome (principal); I61.1 Nontraumatic intracerebral hemorrhage in hemisphere, cortical; E87.1 Hypo-osmolality and hyponatremia; R56.9 Unspecified convulsions; K21.9 Gastro-esophageal reflux disease without esophagitis; I25.2 Old myocardial infarction; I10 Essential (primary) hypertension; K52.9 Noninfective gastroenteritis and colitis, unspecified; E87.6 Hypokalemia; I25.10 Atherosclerotic heart disease of native coronary artery without angina pectoris; I16.0 Hypertensive urgency; K76.0 Fatty (change of) liver, not elsewhere classified; F17.210 Nicotine dependence, cigarettes, uncomplicated; F32.9 Major depressive disorder, single episode, unspecified; F41.9 Anxiety disorder, unspecified; Z88.5 Allergy status to narcotic agent; Z98.1 Arthrodesis status
CPT/HCPCS: 70450; 70544; 70553; 71046; 74177; 80048; 80053; 80307; 81001; 82550; 82552; 83735; 84484; 85025; 85610; 85730; 93005; 95819; 96361; 96365; 96375; A9579; C9113; J1885; J1953; J2270; J2405; J3480; J7030; Q2009; Q9967